=== PATIENT | male | born 1930 | race Caucasian/White ===

== ENCOUNTER → 2016-12-09 | Outpatient (CLI) | payer BC ==
[~2016-12-09] MED LIST: IOPAMIDOL (ISOVUE-300) 100 ML BTL IV ONE
[2016-12-09 11:05] LABS: CREATININE 2.4 mg/dL (0.7-1.3)
--- NOTE | 2016-12-09 13:29 | CT ---
CT Abdomen and Pelvis Unenhanced (Renal Stone Protocol) Indication: Hydronephrosis, urinary retention, history of prostate cancer. Comparison: Renal ultrasound October 08, 2016, CT abdomen and pelvis August 09, 2014. Technique: Axial unenhanced CT imaging was performed through the abdomen and pelvis without contrast . Dose reduction techniques were utilized. The study was performed unenhanced due to the patient's el evated creatinine. Findings: Abdomen: Minimal interlobular septal thickening in the lung bases is increased since the comparison. Right lower lobe granuloma is noted. The imaged noncontrast portions of the liver, gallbladder, spleen, and adrenals are normal. A 1.7-cm cyst in the pancreatic tail (series 3 image 72 e.g.) previously measured 1 cm. Pancreatic atrophy is noted with scattered pancreatic calcifications, suggesting sequela of previous pancreatitis. Moderate to severe bilateral hydronephrosis appears slightly increased since the comparison ultrasound with u reteral dilatation to the bladder. No renal or ureteral stones are identified. Renal parenchymal asse ssment is limited by the lack of IV contrast. Extensive diverticulosis is most prominent in the sigmoid colon, without evidence of diverticulitis. There is extensive stool throughout the colon. The colon and small bowel are normal caliber. The appe ndix is normal. Mild atherosclerosis is present in a normal caliber aorta. No pathologically enlarged lymph nodes are identified.. L3 through S1 fusion appears stable. Mild to moderate spinal canal narrowing at L5-S1 is grossly stab le. Assessment is limited by artifact from the patient's hardware. Pelvis: There is increased diffuse bladder wall thickening. There is new stranding in the fat adjacen t to the bladder. A small right bladder diverticulum is again noted. Prostatic calcifications are pre sent with interval TURP. No pathologically enlarged lymph nodes are identified. Osteopenia is present with no aggressive osseous lesions. Mild degenerative change is present in the hips. Impression: 1. Diffuse bladder wall thickening with stranding adjacent to the bladder, suspicious for cystitis, w ith increased moderate to severe hydronephrosis bilaterally. 2. Constipation with diverticulosis 3. Slight increase in size of a pancreatic cyst since 2013. Continued annual surveillance is recommen ded. 4. Additional findings as above. Attention: This examination does not use radiographic contrast, and as such, provides only a limited evaluation of the abdomen, pelvis and retroperitoneum.
== END ==
LOC: FIMAGING 10:08
PROVIDERS: ATTEND Physician Assistant Medical
DX: N13.30 Unspecified hydronephrosis (principal); R33.9 Retention of urine, unspecified; N32.89 Other specified disorders of bladder; K59.00 Constipation, unspecified; K86.2 Cyst of pancreas; Z98.1 Arthrodesis status; Z85.46 Personal history of malignant neoplasm of prostate
CPT/HCPCS: Q9967

== ENCOUNTER 2016-12-11 11:04 | Inpatient (IN) | payer BC ==
--- NOTE | 2016-12-11 11:34 | CPEKG ---
Heart Rate: 124 RR Interval: 484 P-R Interval: 159 QRSD Interval: 70 QT Interval: 292 QTC Interval: 420 P Lorenzo: 0 QRS Lorenzo: 32 T Wave Lorenzo: 66 EKG Severity - OTHERWISE NORMAL ECG - EKG Impression: SINUS TACHYCARDIA EKG Impression: LOW VOLTAGE IN FRONTAL LEADS Electronically Signed By: Darion Padilla 11-Dec-2016 12:08:53
[2016-12-11] MEDS ORDERED: NS 1,000 ML IV ONE ×2 (12:02)
--- NOTE | 2016-12-11 12:06 | EDPHY ---
H & P Stated Complaint: cancer pt/sent for admission/tachycardia and hypotensive at [facility] Time Seen by Provider: 12/11/16 11:44 HPI/ROS: CHIEF COMPLAINT: Pre syncopal HISTORY OF PRESENT ILLNESS: The patient is is an 86-year-old man who comes to the emergency department from the [facility] center. He has been treated for prostate cancer and has recently noticed increased creatinine levels. The patient states that he does not drink enough water and is continually dehydrated despite efforts made to drink more water. He states that he simply forgets to do it. He denies recent fevers or illness. His son states that he has been increasingly weak over the last 3 days. He did vomit once 3 days ago but does not have any abdominal pain or nausea. No diarrhea. No dark stool. Today he was seen by Dr. Durham and told him that he was pre syncopal. He had a heart rate of 120 and a systolic blood pressure of 90. They transferred appear to the emergency department for evaluation. REVIEW OF SYSTEMS: Constitutional: denies: chills, fever, recent illness, recent injury EENTM: denies: blurred vision, double vision, nose congestion Respiratory: denies: cough, shortness of breath Cardiac: See HPI Gastrointestinal/Abdominal: denies: abdominal pain, diarrhea, nausea, vomiting, blood streaked stools Genitourinary: denies: dysuria, frequency, hematuria, pain Musculoskeletal: denies: joint pain, muscle pain Skin: denies: lesions, rash, jaundice, bruising Neurological: denies: headache, numbness, paresthesia, tingling, dizziness, weakness Hematologic/Lymphatic: denies: blood clots, easy bleeding, easy bruising Immunologic/allergic: denies: HIV/AIDS, transplant EXAM: GENERAL: Well-appearing, well-nourished and in no acute distress. HEAD: Atraumatic, normocephalic. EYES: Pupils equal round and reactive to light, extraocular movements intact, sclera anicteric, conjunctiva are normal. ENT: TMs normal, nares patent, oropharynx clear without exudates. Moist mucous membranes. NECK: Normal range of motion, supple without lymphadenopathy or JVD. LUNGS: Breath sounds clear to auscultation bilaterally and equal. No wheezes rales or rhonchi. HEART: Tachycardia, regular ABDOMEN: Soft, nontender, normoactive bowel sounds. No guarding, no rebound. No masses appreciated. BACK: No CVA tenderness, no spinal tenderness, step-offs or deformities EXTREMITIES: Normal range of motion, no pitting or edema. No clubbing or cyanosis. NEUROLOGICAL: Cranial nerves II through XII grossly intact. Normal speech, normal gait. 5/5 strength, normal movement in all extremities, normal sensation PSYCH: Normal mood, normal affect. SKIN: Warm, dry, normal turgor, no visible rashes or lesions. Source: Patient Exam Limitations: No limitations - Personal History Current Tetanus/Diphtheria Vaccine: No - Medical/Surgical History Hx Asthma: No Hx Chronic Respiratory Disease: No Hx Diabetes: No Hx Cardiac Disease: Yes Hx Renal Disease: No Hx Cirrhosis: No Hx Alcoholism: No Hx HIV/AIDS: No Hx Splenectomy or Spleen Trauma: No Other PMH: htn, peripheral neuropathy,uti/?kidney failure/prostate cancer - Family History Significant Family History: Hypertension - Social History Smoking Status: Former smoker Alcohol Use: Sober Drug Use: None Constitutional: Initial Vital Signs Temperature (C) 36.4 C 12/11/16 11:10 Heart Rate 126 H 12/11/16 11:10 Respiratory Rate 20 12/11/16 11:10 Blood Pressure 126/88 H 12/11/16 11:10 O2 Sat (%) 96 12/11/16 11:10 O2 Delivery Mode Room Air Allergies/Adverse Reactions: No Known Allergies Allergy (Verified 12/11/16 11:08) Home Medications: Medication Instructions Recorded Gabapentin [Neurontin] 1,200 mg PO BID@16,21 11/23/12 Casadex 12/11/16 traZODone 12/11/16 Medical Decision Making - Diagnostics EKG Interpretation: An EKG obtained and was read and documented in trace view. Please see trace view for full reading and report. Sinus tachycardia ED Course/Re-evaluation: Patient had a CT abdomen and pelvis done 2 days ago they revealed mild diffuse bladder wall thickening consistent with cystitis as well as a moderate hydronephrosis bilaterally. 1:05 p.m. the patient's blood pressure is 140/80 he is feeling completely well. His heart rate decreased to 100. I will treat with a 2nd L and continue to observe. His creatinine is slightly elevated. This may be primarily due to dehydration. 1:[address] Regis Quintanilla is here evaluating the patient. He agrees to admit for renal insufficiency and what appears to be bladder thickening on CT scan. Patient's vital signs improved significantly with hydration. He does live alone in the [facility]. Differential Diagnosis: Partial list of the Differential diagnosis considered include but were not limited to; cystitis, bladder cancer, dehydration, obstructive uropathy and although unlikely based on the history and physical exam, I also considered sepsis, pneumonia, anemia. - Data Points Laboratory Results: Laboratory Results 12/11/16 11:35 12/11/16 11:35 12/11/16 11:35 WBC 11.56 H 10^3/uL (3.80-9.50) RBC 4.86 10^6/uL (4.40-6.38) Hgb 14.5 g/dL (13.7-17.5) Hct 43.9 % (40.0-51.0) MCV 90.3 fL (81.5-99.8) MCH 29.8 pg (27.9-34.1) MCHC 33.0 g/dL (32.4-36.7) RDW 15.1 % (11.5-15.2) Plt Count 380 10^3/uL (150-400) MPV 9.7 fL (8.7-11.7) Neut % (Auto) 82.2 H % (39.3-74.2) Lymph % (Auto) 11.1 L % (15.0-45.0) Sharp % (Auto) 5.2 % (4.5-13.0) Eos % (Auto) 0.8 % (0.6-7.6) Baso % (Auto) 0.3 % (0.3-1.7) Nucleat RBC Rel Count 0.0 % (0.0-0.2) Absolute Neuts (auto) 9.51 H 10^3/uL (1.70-6.50) Absolute Lymphs (auto) 1.28 10^3/uL (1.00-3.00) Absolute Monos (auto) 0.60 10^3/uL (0.30-0.80) Absolute Eos (auto) 0.09 10^3/uL (0.03-0.40) Absolute Basos (auto) 0.03 10^3/uL (0.02-0.10) Absolute Nucleated RBC 0.00 10^3/uL (0-0.01) Immature Gran % 0.4 % (0.0-1.1) Immature Gran # 0.05 10^3/uL (0.00-0.10) Sodium 141 mEq/L (134-144) Potassium 4.6 mEq/L (3.5-5.2) Chloride 101 mEq/L (97-110) Carbon Dioxide 23 mEq/l (22-31) Anion Gap 17 H mEq/L (8-16) BUN 50 H mg/dL (7-23) Creatinine 2.2 H mg/dL (0.7-1.3) Estimated GFR 28 Glucose 113 H mg/dL (70-100) Calcium 10.4 mg/dL (8.5-10.4) Medications Given: Discontinued Medications Sodium Chloride (Ns) 1,000 mls @ 0 mls/hr IV ONCE ONE PRN Reason: Wide Open Stop: 12/11/16 12:03 Last Admin: 12/11/16 12:17 Dose: 1,000 mls Sodium Chloride (Ns) 1,000 mls @ 0 mls/hr IV ONCE ONE PRN Reason: Wide Open Stop: 12/11/16 12:03 Last Admin: 12/11/16 13:20 Dose: 1,000 mls Departure - Departure Disposition: [facility] Inpatient Acute Clinical Impression: Dehydration, Renal insufficiency Condition: Fair
[2016-12-11 12:16] LABS: % IMMATURE GRANULYOCYTES 0.4 % (0.0-1.1); ABSOLUTE IMMATURE GRANULOCYTES 0.05 10^3/uL (0.00-0.10); ADD DIFF? NO; ADD MORPH? NO; ADD SCAN? NO; ATYPICAL LYMPHOCYTE FLAG 0 (0-99); FRAGMENT RBC FLAG 20 (0-99); HEMATOCRIT 43.9 % (40.0-51.0); HEMOGLOBIN 14.5 g/dL (13.7-17.5); LEFT SHIFT FLG 0 (0-99); LIPEMIA HEMOLYSIS FLAG 80 (0-99); MEAN CELL HEMOGLOBIN 29.8 pg (27.9-34.1); MEAN CELL VOLUME 90.3 fL (81.5-99.8); MEAN PLATELET VOLUME 9.7 fL (8.7-11.7); PLATELET CLUMPS FLAG 20 (0-99); PLATELET COUNT 380 10^3/uL (150-400); RED BLOOD CELL COUNT 4.86 10^6/uL (4.40-6.38); RED CELL DISTRIBUTION WIDTH 15.1 % (11.5-15.2)
[2016-12-11 12:21] LABS: ANION GAP 17 mEq/L (8-16); CALCIUM 10.4 mg/dL (8.5-10.4); CARBON DIOXIDE 23 mEq/l (22-31); CHLORIDE 101 mEq/L (97-110); CREATININE 2.2 mg/dL (0.7-1.3); GLOMERULAR FILTRATION RATE 28; GLUCOSE 113 mg/dL (70-100); POTASSIUM 4.6 mEq/L (3.5-5.2); SODIUM 141 mEq/L (134-144)
[2016-12-11] MEDS ORDERED: ONDANSETRON 4 MG/2 ML VIAL IVP PRN (13:53)
[2016-12-11] MEDS ORDERED: ACETAMINOPHEN 325 MG TAB PO PRN (13:53)
[2016-12-11] MEDS ORDERED: ZOLPIDEM TARTRATE 5 MG TAB PO PRN (13:53)
[2016-12-11] MEDS ORDERED: NS 1,000 ML IV SCH (14:00)
[2016-12-11 14:07] LABS: COLOR YELLOW; LEUKOCYTE ESTERASE,URINE 3+ (NEGATIVE); NITRITE,URINE NEGATIVE (NEGATIVE)
[2016-12-11 14:18] LABS: RBC,URINE 25-50 /hpf (0-3); WBC,URINE 50-182 /hpf (0-3)
[2016-12-11 14:45] VITALS: RESP 16
--- NOTE | 2016-12-11 14:59 | PDGENHP ---
History and Physical History and Physical: HISTORY AND PHYSICAL ADMISSION NOTE CC:Sent from Dr. Durham office because of hypotension tachycardia, recent vomiting HISTORY: Mr. Odonnell is an 86-year-old man who sees Dr. Durham for prostate cancer. He was in a clinic visit today when he complained of some lightheadedness and was found to have tachycardia and hypotension. On blood testing did have a mildly elevated white blood cell count was sent to the ER for further evaluation. As I go for the patient's story he tells me he was doing well in his usual state until 2 days ago when he had episode of significant vomiting with large volumes of fluid. He says he gets these occasionally but has not had this happen for some months at least. There is no abdominal pain, no bleeding, no diarrhea, but there was nausea. The vomiting did not last very long and he has been eating and drinking since then.He has no nausea now. The patient has not any fever symptoms and has not had any other flu-like symptoms. There are no cold symptoms. Incidentally the patient did have a CT scan done here 2 days ago which was to evaluate his urinary system, however he had only part of the study done as his creatinine was elevated at the time and the contrast portion of the study was not performed. As best I can piece together from his clinic charts and from talking to Dr. Mccarthy this patient was found to have rising creatinine in September at which time an ultrasound showed evidence of some hydronephrosis which was mild. His creatinine in July was 1.1 and 1.8 in September. The patient saw Dr. Mccarthy and apparently was voiding his bladder well so a CT scan was ordered. I reviewed the CT images and report and the findings include mild to moderate hydronephrosis with bladder wall thickening and pericystic stranding suggesting possible cystitis. The hydronephrosis is bilateral. There is no mass visible otherwise and no stones. ROS: 10 system review of systems reveals no other significant symptoms at this time. PAST MEDICAL HISTORY: Prostate cancer, status post prostatectomy, and currently with decreased PSA taking Lupron and bicalutamide Recent onset of renal insufficiency Peripheral neuropathy Spinal stenosis Diastolic heart failure Pancreatic cyst is seen on CT scans, little warp changer time FAMILY MEDICAL HISTORY: familial idiopathic peripheral neuropathy SOCIAL HISTORY: , lives in a private home in [place] [facility] by himself with the dog no smoking or tobacco or alcohol use MEDICATIONS: his home medicines and not been yet reconciled by our pharmacist, however he does take bicalutamide, Lupron, gabapentin, trazodone for sleep ; I will need to wait for the full list to be reconciled PHYSICAL EXAMINATION: Vital Signs: pulse in the mid 120's and was reported as having been hypotensive in the clinician's office, but his blood pressures here have been good so far. 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 and 11.08 RADIOLOGY STUDIES: I reviewed the CT scan images and report from December 09, as detailed above in history of this note ASSESSMENT: # HYPOTENSION AND TACHYCARDIA # PYURIA WITH SOME SUSPICION FOR URINARY TRACT INFECTION # PROBABLE SEPSIS # WORSENING RENAL FUNCTION WITH BILATERAL HYDRONEPHROSIS The patient does not have typical voiding symptoms of UTI, however he does have acute illness with hypotension and tachycardia, pyuria, high white blood cell count, and on CT scan 2 days ago finding suggestive of cystitis (see discussion below). Therefore cultures been sent from his urine and I will start him on antibiotics along with giving him aggressive hydration at this time. In terms of his worsening renal function and bilateral hydronephrosis Dr. Mccarthy and I reviewed his CT scan together. It is hard to determine what his hydronephrosis is coming from. Given that it is fairly mild in Dr. Mccarthy opinion, it is also difficult to determine whether the hydronephrosis is causing his change in renal function. Our plan will be to treat the patient for his acute hemodynamic change and probable infection, and observe his renal function. If it seems to be stable or getting better the Dr. Mccarthy would like to see him back in clinic to do cystoscopy. If he does not have any resolution or particularly if things get worse with his renal function we may need to consider cystoscopy and or nephrostomy tube placement here. Dr. Mccarthy will be rounding this weekend and will be available if the patient is not improving. PLANS: - inpatient admission - Urine cultures pending -Continue IV fluid resuscitation -Begin IV antibiotics empirically for urinary tract infection -Fall risk precautions Follow orthostatic vital signs -DVT prophylaxis I have reviewed the patient's case in detail with Dr. Darion Padilla and Dr. Max Mccarthy I have reviewed the patient's past medical records as part of this assessment, including previous hospital records including laboratory data imaging and physician notes. Also his clinic records as available 3 Green 1
[2016-12-11] MEDS ORDERED: GABAPENTIN 100 MG CAP PO SCH (22:30)
[2016-12-11] MEDS ORDERED: traZODone 50 MG TAB PO SCH (22:30)
[2016-12-12 06:09] LABS: % IMMATURE GRANULYOCYTES 0.5 % (0.0-1.1); ABSOLUTE IMMATURE GRANULOCYTES 0.04 10^3/uL (0.00-0.10); ADD DIFF? NO; ADD MORPH? NO; ADD SCAN? NO; ATYPICAL LYMPHOCYTE FLAG 10 (0-99); FRAGMENT RBC FLAG 0 (0-99); HEMATOCRIT 32.7 % (40.0-51.0); HEMOGLOBIN 10.8 g/dL (13.7-17.5); LEFT SHIFT FLG 0 (0-99); LIPEMIA HEMOLYSIS FLAG 80 (0-99); MEAN CELL HEMOGLOBIN 29.4 pg (27.9-34.1); MEAN CELL VOLUME 89.1 fL (81.5-99.8); MEAN PLATELET VOLUME 9.1 fL (8.7-11.7); PLATELET CLUMPS FLAG 10 (0-99); PLATELET COUNT 262 10^3/uL (150-400); RED BLOOD CELL COUNT 3.67 10^6/uL (4.40-6.38); RED CELL DISTRIBUTION WIDTH 14.9 % (11.5-15.2)
[2016-12-12 06:11] LABS: ANION GAP 9 mEq/L (8-16); CALCIUM 8.9 mg/dL (8.5-10.4); CARBON DIOXIDE 22 mEq/l (22-31); CHLORIDE 111 mEq/L (97-110); CREATININE 1.8 mg/dL (0.7-1.3); GLOMERULAR FILTRATION RATE 36; GLUCOSE 89 mg/dL (70-100); POTASSIUM 4.1 mEq/L (3.5-5.2); SODIUM 142 mEq/L (134-144)
[2016-12-12] MEDS ORDERED: BICALUTAMIDE 50 MG TAB PO SCH (09:00)
[2016-12-12] MEDS ORDERED: ENOXAPARIN 30 MG/0.3 ML SYR SC SCH (09:00)
[2016-12-12] MEDS ORDERED: ENOXAPARIN 40 MG/0.4 ML SYR SC SCH (09:00)
--- NOTE | 2016-12-12 11:52 | GDS ---
[f rep st] DISCHARGE SUMMARY DISCHARGE DIAGNOSES: 1. Complicated urinary tract infection. 2. History of prostate cancer. 3. Possible urinary obstruction with mild hydronephrosis. 4. History of renal insufficiency with worsening creatinine. 5. Peripheral neuropathy. 6. Spinal stenosis. 7. Diastolic heart failure. 8. Sepsis. HISTORY: This is an 86-year-old male who sees Dr. Durham for prostate cancer. He presented with some tachycardia and lightheadedness as well as hypertension. HOSPITAL COURSE: The patient did have significant pyuria. He did have a CAT scan previously that sh owed mild severe hydronephrosis bilaterally as well as diffuse bladder wall thickening. HOSPITAL COURSE: Patient was admitted. Given IV fluids. Tachycardia improved. Creatinine also is improving, although not completely at baseline. Discharge creatinine is 1.8. He is feeling a lot be tter. He is adamant that he wants to go home. I think this is probably reasonable. He is seeing Dr Marlena Mccarthy on Wednesday or in 2 days for followup because of his hydronephrosis. Dr. Mccarthy has been workin g with him closely over the last several months. DISPOSITION: Home. DISCHARGE MEDICATIONS: He should resume his home medications, and in addition will be given Ceftin 2 50 mg twice daily for 7 more days. FOLLOWUP INSTRUCTIONS: He is to follow up with Dr. Mccarthy in 2 days. /[id number]/MODL
[2016-12-12 12:40] VITALS: BP 128/76; PULSE 78; TEMP 97.6; O2SAT 96
== END 2016-12-12 13:19 | disposition home or self-care (01) | DRG 690 ==
LOC: OBSVTOIN 13:53 → F3E 14:38
PROVIDERS: ADMIT Internal Medicine; ATTEND Internal Medicine
DX: N30.90 Cystitis, unspecified without hematuria (principal); E86.0 Dehydration; N28.9 Disorder of kidney and ureter, unspecified; N13.30 Unspecified hydronephrosis; C61 Malignant neoplasm of prostate; G62.9 Polyneuropathy, unspecified; M48.00 Spinal stenosis, site unspecified; I50.30 Unspecified diastolic (congestive) heart failure
CPT/HCPCS: J0696; J1650

== ENCOUNTER 2017-10-03 12:19 | Inpatient (IN) | payer BC ==
--- NOTE | 2017-10-03 12:56 | CPEKG ---
Heart Rate: 99 RR Interval: 606 P-R Interval: 172 QRSD Interval: 76 QT Interval: 332 QTC Interval: 426 P [place]: 79 QRS [place]: 16 T Wave [place]: 79 EKG Severity - ABNORMAL ECG - EKG Impression: SINUS RHYTHM EKG Impression: RIGHT ATRIAL ABNORMALITY EKG Impression: LOW VOLTAGE IN FRONTAL LEADS Electronically Signed By: Miguel Pop 04-Oct-2017 21:52:12
[2017-10-03] MEDS ORDERED: NS 1,000 ML IV ONE (12:57)
[2017-10-03 13:01] LABS: % IMMATURE GRANULYOCYTES 0.5 % (0.0-1.1); ABSOLUTE IMMATURE GRANULOCYTES 0.07 10^3/uL (0.00-0.10); ADD DIFF? NO; ADD MORPH? NO; ADD SCAN? NO; ATYPICAL LYMPHOCYTE FLAG 0 (0-99); FRAGMENT RBC FLAG 0 (0-99); HEMATOCRIT 47.2 % (40.0-51.0); HEMOGLOBIN 16.6 g/dL (13.7-17.5); LEFT SHIFT FLG 0 (0-99); LIPEMIA HEMOLYSIS FLAG 90 (0-99); MEAN CELL HEMOGLOBIN 31.6 pg (27.9-34.1); MEAN CELL HEMOGLOBIN CONCENTR. 35.2 g/dL (32.4-36.7); MEAN CELL VOLUME 89.7 fL (81.5-99.8); MEAN PLATELET VOLUME 8.9 fL (8.7-11.7); PLATELET CLUMPS FLAG 0 (0-99); PLATELET COUNT 429 10^3/uL (150-400); RED BLOOD CELL COUNT 5.26 10^6/uL (4.40-6.38)
[2017-10-03 13:07] LABS: ALANINE AMINOTRANSFERASE 38 IU/L (21-72); ALBUMIN 4.2 g/dL (3.5-5.0); ALKALINE PHOSPHATASE 98 IU/L (38-126); ANION GAP 21 mEq/L (8-16); ASPARTATE AMINOTRANSFERASE 17 IU/L (17-59); BILIRUBIN,TOTAL 0.4 mg/dL (0.1-1.4); BILIRUBIN-CONJUGATED 0.3 mg/dL (0.0-0.5); BILIRUBIN-UNCONJUGATED 0.1 mg/dL (0.0-1.1); CALCIUM 9.1 mg/dL (8.5-10.4); CARBON DIOXIDE 12 mEq/l (22-31); CHLORIDE 102 mEq/L (97-110); CREATININE 3.6 mg/dL (0.7-1.3); GLOMERULAR FILTRATION RATE 16; GLUCOSE 168 mg/dL (70-100); SODIUM 135 mEq/L (134-144); TOTAL PROTEIN 7.8 g/dL (6.3-8.2)
--- NOTE | 2017-10-03 13:09 | EDPHY ---
HPI/HX/ROS/PE/MDM Narrative: CHIEF COMPLAINT: Loss of appetite, constipation HPI: The patient is an 87 y/o male with a history of prostate cancer, kidney failure, hypertension, tachycardia, and peripheral neuropathy complaining of loss of appetite and constipation for the past few days. He has vomited several times with a reddish emesis. He has associated global weakness. He denies abdominal pain or tenderness, dark or tarry stools, or any other associated symptoms. He has been able to drink a small amount of water. REVIEW OF SYSTEMS: Aside from elements discussed in the HPI, a comprehensive 10-point review of systems was reviewed and is negative. PMH: Peripheral neuropathy, prostate cancer, kidney failure, hypertension, tachycardia Past medical records reviewed including 12/11/16 ED visit SOCIAL HISTORY: Lives alone in [place], has a [place] Gao named Mari, retired PHYSICAL EXAM: General:Patient is cachectic, alert, in no acute distress. ENT:Eyes are normal to inspection. ENT inspection normal. Neck: Normal inspection. Full range of motion. Respiratory:No respiratory distress. Breath sounds normal bilaterally. Cardiovascular: Regular rate and rhythm. Normal cap refill. Abdomen:The abdomen is nontender to palpation. There are no peritoneal signs. There are normal bowel sounds. Back: Normal to inspection. No tenderness to palpation. Skin: Normal color. No rash. Warm and dry. Extremities: Normal appearance. Full range of motion. Neuro: Oriented x3. Normal motor function. Normal sensory function. ED Course: EKG was ordered and interpreted by myself. EKG normal. Please see [employer] system for official reading. Study: X-ray of the chest Indication: Abdominal pain, loss of appetite, history of cardiac issues Results: X-ray of the chest was obtained. The results of the study are: negative for acute processes The study was read by the radiologist, Dr. Vargas. I viewed the images myself on the PACS system. 1324: Labs (elevated potassium and BUN) indicate acute renal failure. Plan for admission. 1329: I spoke with the hospitalist service regarding admission for this patient. They agree to admit. Dr. Lucero will be the admitting doctor. MDM: This elderly patient presents with severe dehydration and ARF, evidenced by high creatinine and elevated potassium. The underlying etiology is unclear. The patient requires admission to the hosptial for rehydration and further workup. I see no signs of infectious process currently. - Data Points Imaging Results: Imaging Impressions Chest X-Ray 10/03/17 12:57 Impression: COPD with mild perihilar bronchitis, but no focal infiltrate. Laboratory Results: Laboratory Results 10/03/17 12:48 10/03/17 12:48 10/03/17 10/03/17 12:48 12:48 WBC 12.92 10^3/uL H 10^3/uL (3.80-9.50) RBC 5.26 10^6/uL 10^6/uL (4.40-6.38) Hgb 16.6 g/dL g/dL (13.7-17.5) Hct 47.2 % % (40.0-51.0) MCV 89.7 fL fL (81.5-99.8) MCH 31.6 pg pg (27.9-34.1) MCHC 35.2 g/dL g/dL (32.4-36.7) RDW 19.0 % H % (11.5-15.2) Plt Count 429 10^3/uL H 10^3/uL (150-400) MPV 8.9 fL fL (8.7-11.7) Neut % (Auto) 88.1 % H % (39.3-74.2) Lymph % (Auto) 7.3 % L % (15.0-45.0) Shelby % (Auto) 4.0 % L % (4.5-13.0) Eos % (Auto) 0.0 % L % (0.6-7.6) Baso % (Auto) 0.1 % L % (0.3-1.7) Nucleat RBC Rel Count 0.0 % % (0.0-0.2) Absolute Neuts (auto) 11.38 10^3/uL H 10^3/uL (1.70-6.50) Absolute Lymphs (auto) 0.94 10^3/uL L 10^3/uL (1.00-3.00) Absolute Monos (auto) 0.52 10^3/uL 10^3/uL (0.30-0.80) Absolute Eos (auto) 0.00 10^3/uL L 10^3/uL (0.03-0.40) Absolute Basos (auto) 0.01 10^3/uL L 10^3/uL (0.02-0.10) Absolute Nucleated RBC 0.00 10^3/uL 10^3/uL (0-0.01) Immature Gran % 0.5 % % (0.0-1.1) Immature Gran # 0.07 10^3/uL 10^3/uL (0.00-0.10) Sodium 135 mEq/L mEq/L (134-144) Potassium 6.3 mEq/L H* mEq/L (3.5-5.2) Chloride 102 mEq/L mEq/L (97-110) Carbon Dioxide 12 mEq/l L mEq/l (22-31) Anion Gap 21 mEq/L H mEq/L (8-16) BUN 116 mg/dL H* mg/dL (7-23) Creatinine 3.6 mg/dL H mg/dL (0.7-1.3) Estimated GFR 16 Glucose 168 mg/dL H mg/dL (70-100) Calcium 9.1 mg/dL mg/dL (8.5-10.4) Total Bilirubin 0.4 mg/dL mg/dL (0.1-1.4) Conjugated Bilirubin 0.3 mg/dL mg/dL (0.0-0.5) Unconjugated Bilirubin 0.1 mg/dL mg/dL (0.0-1.1) AST 17 IU/L IU/L (17-59) ALT 38 IU/L IU/L (21-72) Alkaline Phosphatase 98 IU/L IU/L (38-126) Troponin I < 0.012 ng/mL ng/mL (0.000-0.034) Total Protein 7.8 g/dL g/dL (6.3-8.2) Albumin 4.2 g/dL g/dL (3.5-5.0) Lipase 194 IU/L IU/L (23-300) Medications Given: Discontinued Medications Sodium Chloride (Ns) 1,000 mls @ 0 mls/hr IV EDNOW ONE; Wide Open PRN Reason: Protocol Stop: 10/03/17 12:58 Last Admin: 10/03/17 13:24 Dose: 1,000 mls General Time Seen by Provider: 10/03/17 12:55 Initial Vital Signs: Initial Vital Signs Temperature (C) 36.3 C 10/03/17 12:19 Heart Rate 108 H 10/03/17 12:19 Respiratory Rate 16 10/03/17 12:19 Blood Pressure 120/89 H 10/03/17 12:19 O2 Sat (%) 99 10/03/17 12:19 O2 Delivery Mode Room Air Allergies/Adverse Reactions: No Known Allergies Allergy (Verified 12/11/16 11:08) Home Medications: Medication Instructions Recorded Bicalutamide [Casodex (*)] 50 mg PO DAILY 12/11/16 Gabapentin [Neurontin 100 MG (*)] 100 mg PO HS 12/11/16 traZODone [traZODONE 50MG (*)] 50 mg PO HS 12/11/16 Aspirin EC [Aspirin EC 325 mg (*)] 325 mg PO HS 10/03/17 Herbals/Supplements -Info Only 1 ea PO DAILY 10/03/17 Departure - Departure Disposition: [facility] Inpatient Acute Clinical Impression: Acute renal failure Qualifiers: Acute renal failure type: unspecified Qualified Code(s): N17.9 - Acute kidney failure, unspecified Condition: Fair Report Scribed for: Miguel Pop Report Scribed by: Deandra Phillips Date of Report: 10/03/17 Time of Report: 13:17 Physician Review and Approval Statement: Portions of this note were transcribed by an ED scribe. I personally performed the history, physical exam, and medical decision making; and confirm the accuracy of the information in the transcribed note.
[2017-10-03 13:19] LABS: TROPONIN I < 0.012 ng/mL (0.000-0.034)
[2017-10-03 13:22] LABS: POTASSIUM 6.3 mEq/L (3.5-5.2)
[2017-10-03 14:16] LABS: LEUKOCYTE ESTERASE,URINE 3+ (NEGATIVE); NITRITE,URINE NEGATIVE (NEGATIVE)
[2017-10-03 14:18] LABS: COLOR RED
[2017-10-03 14:26] LABS: MUCUS TRACE /lpf (NONE-1+); RBC,URINE 50-182 /hpf (0-3); WBC,URINE 50-182 /hpf (0-3)
[2017-10-03] MEDS ORDERED: ONDANSETRON 4 MG/2 ML VIAL IVP PRN (14:58)
[2017-10-03] MEDS ORDERED: ONDANSETRON DISINTEGRATING 4 MG TAB PO PRN (14:58)
[2017-10-03] MEDS ORDERED: ACETAMINOPHEN 325 MG TAB PO PRN (14:58)
[2017-10-03] MEDS ORDERED: SODIUM BICARBONATE 50 MEQ/50 ML SYR IVP ONE (15:00)
[2017-10-03] MEDS ORDERED: SODIUM POLY SULF 15 GM/60 ML BOTTLE PO ONE (15:02)
[2017-10-03] MEDS ORDERED: D50W 25 GM/50 ML SYR IVP ONE (15:06)
[2017-10-03] MEDS ORDERED: INSULIN REGULAR HUMAN 100 UNIT/ML IVP ONE (15:06)
[2017-10-03 16:17] LABS: ANION GAP 15 mEq/L (8-16); CALCIUM 8.2 mg/dL (8.5-10.4); CARBON DIOXIDE 13 mEq/l (22-31); CHLORIDE 108 mEq/L (97-110); CREATININE 3.2 mg/dL (0.7-1.3); GLOMERULAR FILTRATION RATE 18; GLUCOSE 110 mg/dL (70-100); SODIUM 136 mEq/L (134-144)
--- NOTE | 2017-10-03 16:29 | GHP ---
[f rep st] HISTORY AND PHYSICAL DATE OF ADMISSION: 10/03/2017 CHIEF COMPLAINT: Weakness. HISTORY OF PRESENT ILLNESS: The patient is an elderly man with a history significant for prostate cancer, chronic renal failure. His most recent creatinine was around 2.3. He comes in with 3-4 days of feeling poorly. He has had decreased p.o. intake due to anorexia, although he has been trying to stay hydrated by drinking fluids. He denies any fevers, chills, or difficulty urinating. He is incontinent of urine and wears a diaper. He denies any change in his urine output that he knows. Over the last 2 days he has had increased nausea and vomiting. No diarrhea. His last BM was this morning. He denies any headache, vision, hearing, speech issues. He denies any chest pain, shortness of breath, or palpitations. He denies any abdominal pain. He has no significant lower extremity swelling. He does have chronic peripheral neuropathy, which makes it difficult for him to ambulate. REVIEW OF SYSTEMS: A 10-point review of systems was done. Pertinent positives in the HPI. PAST MEDICAL HISTORY: 1. Prostate cancer, followed by Dr. Durham, status post radiation, and after recurrence currently on Lupron and Casodex. 2. Spinal stenosis, status post L4-5 decompression. 3. Hypertension, currently not treated. 4. Peripheral neuropathy. 5. Chronic renal failure. Baseline creatinine anywhere from 2.2-3. FAMILY HISTORY: Reviewed and noncontributory. SOCIAL HISTORY: His several years ago. He currently lives alone up in [facility] in a 3-story house. He is wheelchair bound due to his peripheral neuropathy and fear of falling. He has a wheelchair on every floor of his house and goes up and down the stairs without assistance until he gets to the next floor, where he has a wheelchair waiting for him. He does have 2 sons in town. One son sees him daily and brings him food. The other son takes him to all of his medical appointments. MEDICATIONS: Gabapentin 100 mg at night, aspirin daily, Casodex daily, and trazodone 50 mg at night. Please see med rec form. ALLERGIES: No known drug allergies. PHYSICAL EXAMINATION: VITAL SIGNS: He is afebrile. Heart rate 100, blood pressure 139/88, respirations 16, he is 98% on room air. GENERAL: He is an elderly man, who looks fairly debilitated, in no obvious distress. He is alert and oriented x2. He is unclear of the date. HEENT: Pupils are equal. Extraocular movements intact. Sclerae anicteric. Mucous membranes are slightly dry. Oropharynx is clear. NECK: Supple. No adenopathy. HEART: Regular with a systolic murmur. LUNGS: Clear bilaterally without wheeze, rhonchi, or rales. Spine nontender. ABDOMEN: Soft. No obvious masses. Positive bowel sounds. EXTREMITIES: Feet are cool to the touch with diminished peripheral pulses. He does have bilateral lower extremity edema, which is equal. MUSCULOSKELETAL: Noted for some atrophy. No obvious joint effusions or deformities. NEUROLOGIC: Peripheral neuropathy. He is moving all 4 extremities. SKIN: Some chronic venous stasis changes in his feet. PSYCHIATRIC: Mood is normal. LABORATORY DATA: CBC shows a white count of 12.9, platelets 429. Electrolytes show sodium 135, potassium 6.3, BUN 116, with a creatinine of 3.6. LFTs are normal. Troponin is negative. Urinalysis is positive for hematuria and pyuria. Chest x-ray personally reviewed and interpreted, shows no focal infiltrate. Electrocardiogram personally reviewed and interpreted, sinus rhythm , no significant T-wave changes. ASSESSMENT AND PLAN: 87-year-old who presents with several days of anorexia and a couple days of nausea and vomiting, is found to have hyperkalemia associated with renal failure. 1. Hyperkalemia. We will treat this acutely with some bicarb, glucose and insulin, and Kayexalate. Will follow serial electrolytes tonight, give him intravenous fluids and evaluate his renal failure. 2. Xovag-ri-yhabnde renal failure. Baseline creatinine is anywhere from 2.4 to 3 over the last several months. Plan will be to check urine electrolytes, protein levels, and renal ultrasound. We will do a quick bladder scan for decompression if he has urinary retention. 3. Prostate cancer, recurrent, followed by Dr. Durham. Continue his Casodex. 4. Osteoporosis, currently on Prolia. 5. History of hypertension, stable. 6. Iron deficiency anemia. Has received intravenous iron in the clinic. Anemia likely also associated with his renal failure. 7. Deep venous thrombosis prophylaxis. Patient at moderately high risk. We will start subcutaneous heparin. 8. Code status. I did have an extensive conversation with the patient. He does not currently have a living will, but would like to be a do not resuscitate at this time. /[id number]/MODL MTDD
[2017-10-03] MEDS: NS 1,000 ML IV SCH (17:33)
[2017-10-03] MEDS: ASPIRIN EC 325 MG TAB PO SCH (20:26)
[2017-10-03] MEDS: HEPARIN 5,000 UNIT/0.5 ML SYR SC SCH (20:26)
[2017-10-03] MEDS: traZODone 50 MG TAB PO SCH (20:27)
[2017-10-03] MEDS: LIDOCAINE 5% 1 EA PATCH TD PRN (22:59)
[2017-10-03] MEDS ORDERED: GABAPENTIN 100 MG CAP PO SCH (23:30)
[2017-10-04 00:40] LABS: ANION GAP 19 mEq/L (8-16); CALCIUM 7.5 mg/dL (8.5-10.4); CARBON DIOXIDE 16 mEq/l (22-31); CHLORIDE 102 mEq/L (97-110); CREATININE 2.9 mg/dL (0.7-1.3); GLOMERULAR FILTRATION RATE 21; GLUCOSE 99 mg/dL (70-100); SODIUM 137 mEq/L (134-144)
[2017-10-04] MEDS: HEPARIN 5,000 UNIT/0.5 ML SYR SC SCH ×3 (06:19→20:37)
[2017-10-04] MEDS: NS 1,000 ML IV SCH ×2 (06:20→20:36)
[2017-10-04 06:31] LABS: % IMMATURE GRANULYOCYTES 0.4 % (0.0-1.1); ABSOLUTE IMMATURE GRANULOCYTES 0.04 10^3/uL (0.00-0.10); ADD DIFF? NO; ADD MORPH? NO; ADD SCAN? NO; ATYPICAL LYMPHOCYTE FLAG 0 (0-99); FRAGMENT RBC FLAG 0 (0-99); HEMATOCRIT 35.9 % (40.0-51.0); HEMOGLOBIN 12.6 g/dL (13.7-17.5); LEFT SHIFT FLG 0 (0-99); LIPEMIA HEMOLYSIS FLAG 90 (0-99); MEAN CELL HEMOGLOBIN 31.2 pg (27.9-34.1); MEAN CELL HEMOGLOBIN CONCENTR. 35.1 g/dL (32.4-36.7); MEAN CELL VOLUME 88.9 fL (81.5-99.8); MEAN PLATELET VOLUME 9.2 fL (8.7-11.7); PLATELET CLUMPS FLAG 0 (0-99); PLATELET COUNT 316 10^3/uL (150-400); RED BLOOD CELL COUNT 4.04 10^6/uL (4.40-6.38); RED CELL DISTRIBUTION WIDTH 18.7 % (11.5-15.2)
[2017-10-04 07:11] LABS: ANION GAP 15 mEq/L (8-16); CALCIUM 7.1 mg/dL (8.5-10.4); CARBON DIOXIDE 13 mEq/l (22-31); CHLORIDE 109 mEq/L (97-110); CREATININE 2.6 mg/dL (0.7-1.3); GLOMERULAR FILTRATION RATE 23; GLUCOSE 90 mg/dL (70-100); MAGNESIUM 2.4 mg/dL (1.6-2.3); POTASSIUM 3.7 mEq/L (3.5-5.2); SODIUM 137 mEq/L (134-144)
--- NOTE | 2017-10-04 09:28 | PDMN ---
Medical Necessity Medical necessity: Patient meets INPT criteria per physician note and [facility] M-326 Renal Failure, Acute ([id number] renal failure: presents w/ 3-4 days of feeling poorly, 2 days of N/V; baseline Creat 2-2.3, currently 3.6; hyperkalemia / K+ 6.3; abd U/S shows moderate bilateral hydronephrosis; hx of prostate cancer and CRF; given IV bicarb, glucose, insulin, Kayexalate for K+; ongoing tachycardia after IV fluid resuscitation; anticipated LOS > 2 midnights for ongoing IV hydration, IV antibiotics, serial electrolytes.)
[2017-10-04] MEDS: BICALUTAMIDE 50 MG TAB PO SCH (09:57)
--- NOTE | 2017-10-04 10:55 | HOSPPROG ---
Hospitalist Progress Note Assessment/Plan: 87 very debilitated man with a history of chronic renal failure is admitted with hyperkalemia and acute on chronic renal failure likely due to urinary tract infection and chronic hydronephrosis. # urinary tract infection: Improved clinically with ceftriaxone will continue same and follow up cultures. # acute on chronic renal failure, close but not quite at baseline today. He has not had any nephrology follow-up and will try to set that up as an outpatient. Avoid nephrotoxins. He is on a low dose of Neurontin and will continue that due to severe peripheral neuropathy # hyperkalemia, improved with bicarb and glucose/insulin will monitor for 24 hr to make sure it stays stable. # prostate cancer, followed by Dr. Durham # bilateral hydronephrosis followed by Dr. Mccarthy's, ultrasound appears fairly stable. # severe peripheral neuropathy, debilitating and that he is unable to walk due to balance issues. He lives in a 3 story house and has a wheelchair on every floor for ambulation. He is able to go up and down the stairs by holding on to railing, he denies any recent falls. Given his severe debilitation will make sure he is strong enough prior to returning home. He is refusing any other type of rehab at this time. # DVT prophylaxis continue subcu heparin Subjective: Feels better today no further nausea or vomiting has not had a bowel movement yet. Objective: Vital Signs Temp Pulse Resp BP Pulse Ox 36.7 C 80 12 104/63 99 10/04/17 08:00 10/04/17 08:00 10/04/17 08:00 10/04/17 08:00 10/04/17 08:00 Laboratory Results 10/04/17 06:00 10/04/17 06:00 10/03/17 10/04/17 10/05/17 05:59 05:59 05:59 Intake Total 2350 Balance 2350 - Physical Exam Constitutional: chronically ill appearing, uncomfortable Eyes: PERRL, anicteric sclera, EOMI Ears, Nose, Mouth, Throat: moist mucous membranes Cardiovascular: regular rate and rhythym, systolic murmur Respiratory: no respiratory distress, no rales or rhonchi, clear to auscultation Gastrointestinal: normoactive bowel sounds, soft, non-tender abdomen Genitourinary: no bladder fullness, No ramirez in urethra Skin: other (Bilateral feet with neuropathy and discoloration and diminished this) Musculoskeletal: generalized weakness Neurologic: No AAOx3 (October 2017 cannot remember the date) Psychiatric: interacting appropriately ICD10 Worksheet Patient Problems: Problems Problem Status Onset Acute renal failure Acute Dehydration Acute Renal insufficiency Acute
--- NOTE | 2017-10-04 10:56 | ASMTCMCOM ---
CM Note CM Note Notes: Patient admitted for acute renal failure/dehydration. He lives alone and has some private duty help every day. He also has supportive and involved children. I spoke with his son Tian Abdi, and either he or his brother will transport patient miky when he is discharged. PT/OT evals pending. Current CM Discharge plan: home with private duty help and family support Date Signed: 10/04/2017 10:56 AM Electronically Signed By:Orly León RN
[2017-10-04] MEDS: PATCH REMOVAL 1 EA PATCH TD SCH (11:12)
--- NOTE | 2017-10-04 18:02 | WOCRNPDOC ---
WOCRN Advanced Assessment Note - Skin Integrity Problem, Advanced Assess Right Ischial Tuberosity Pressure Injury Dressing Type: Open to Air Site Measurement - Head-to-Toe Length X Width X Depth (cm): 0.5x0.3x0.2 Pressure Injury Stage: Stage 3 Pressure Injury Present on Admit: Yes Skin Integrity Problem Comment: Discussed findings with patient. Offloading PRT Tio Kerwin cushion provided. Mo RN in room for care. Will initiate collagen to help stimulate wound healing as the wound appears to be several months old. Left Lower Leg Dressing Type: Allevyn Life Dressing Description: Intact Exudate Amount: Minimal Exudate Characteristic(s): Serous Integumentary Issue Intervention: Visualized Under Dressing Marsha Wound Tissue: Blanching, Erythema Wound Bed Constitution: Smooth Tissue Site Measurement - Head-to-Toe Length X Width X Depth (cm): medial: 4.5x1x0, anterior: 1x2x0.2 Skin Integrity Problem Comment: Per patient report these are traumatic wounds. However Mo staffing associate thought they may be due to pressure from the wheelchair. It is unclear if they are contusions or deep tissue injuries. Will recheck at the end of the week. Currently there is a small full thickness open area on the right side of the anterior wound, the remaining areas are closed and dark purple /red non blanching. Right Sacrum Pressure Injury Dressing Type: Open to Air Site Measurement - Head-to-Toe Length X Width X Depth (cm): 3x1x0 Pressure Injury Stage: Stage 1 Skin Integrity Problem Comment: This wound is on the most inferior edge of the right sacrum, quite close to the anus. It is non blanching but is tender per patient report. Due to patient's incontinence a dressing is not indicated here.
[2017-10-04] MEDS: traZODone 50 MG TAB PO SCH (20:36)
[2017-10-04] MEDS: ASPIRIN EC 325 MG TAB PO SCH (20:37)
[2017-10-04] MEDS ORDERED: GABAPENTIN 100 MG CAP PO SCH ×2 (21:00)
[2017-10-04] MEDS: LIDOCAINE 5% 1 EA PATCH TD PRN (22:03)
[2017-10-05 04:42] LABS: ANION GAP 11 mEq/L (8-16); CALCIUM 6.6 mg/dL (8.5-10.4); CARBON DIOXIDE 15 mEq/l (22-31); CHLORIDE 113 mEq/L (97-110); CREATININE 2.3 mg/dL (0.7-1.3); GLOMERULAR FILTRATION RATE 27; GLUCOSE 82 mg/dL (70-100); POTASSIUM 3.5 mEq/L (3.5-5.2); SODIUM 139 mEq/L (134-144)
[2017-10-05] MEDS: HEPARIN 5,000 UNIT/0.5 ML SYR SC SCH ×2 (06:03→14:31)
[2017-10-05 07:33] VITALS: BP 108/54; PULSE 120; RESP 18; TEMP 97.8; O2SAT 99
[2017-10-05] MEDS: BICALUTAMIDE 50 MG TAB PO SCH (09:10)
[2017-10-05] MEDS: PATCH REMOVAL 1 EA PATCH TD SCH (09:10)
--- NOTE | 2017-10-05 09:24 | PDIAF ---
- Diagnosis Diagnosis: UTI, renal failure, hyperkalemia Code Status: Do Not Resuscitate - Medication Management Discharge Medications: Medications to Continue on Transfer Bicalutamide [Casodex (*)] 50 mg PO DAILY 12/11/16 [Last Taken 10/02/17] Gabapentin [Neurontin 100 MG (*)] 100 mg PO HS 12/11/16 [Last Taken 10/01/17] traZODone [traZODONE 50MG (*)] 50 mg PO HS 12/11/16 [Last Taken 10/02/17] Aspirin EC [Aspirin EC 325 mg (*)] 325 mg PO HS 10/03/17 [Last Taken 10/02/17] Herbals/Supplements -Info Only 1 ea PO DAILY 10/03/17 [Last Taken Unknown] Cephalexin 500 mg PO BID #14 capsule 10/05/17 [Last Taken Unknown] Discharge Medications: Refer to the Discharge Home Medication list for PRN reason. - Orders Services needed: Home Care, Registered Nurse, Physical Therapy Home Care Face to Face: I certify that this patient was under my care and that I had the required [id number] encounter meeting the encounter requirements on the discharge day. My findings support the fact that the patient is homebound as defined in Home Care Face to Face Continued: CMS Chapter 7 Medicare Benefits Manual 30.1.1 , The condition of the patient is such that there exists a normal inability to leave home and consequently, leaving home would require a considerable and taxing effort. Isolation Type: None Diet Recommendation: potassium restricted Diet Texture: Regular Texture Diet - Labs/Radiology BMP Date: 10/11/17 - Follow Up Care Current Providers and Referrals: Patient,NotPresent [Unknown] - As per Instructions
--- NOTE | 2017-10-05 11:07 | GDS ---
[f rep st] DISCHARGE SUMMARY DIAGNOSES: 1. Hyperkalemia. 2. Acute on chronic renal failure. 3. Urinary tract infection. 4. Right ischial tuberosity pressure injury, right sacrum pressure injury. Wound Care recommends fo [place] with the wound clinic. 5. Prostate cancer. 6. Severe peripheral neuropathy, limiting ambulation. 7. Bilateral hydronephrosis, followed by Dr. Mccarthy. 8. Prostate cancer, followed by Dr. Durham. PROCEDURES DONE: Abdominopelvic ultrasound, showing stable hydronephrosis. HOSPITAL COURSE: The patient is an 87-year-old who presents with a few days of nausea, vomiting, poo r p.o. intake prior to admission. On admission, he was noted to be in acute on chronic renal failure with an elevated creatinine of 3.3, elevated potassium of 6.3. He was treated with bicarb, insulin and glucose with improvement in his potassium levels. He was treated with IV fluids, and his creatin ine improved to baseline, and his urinary tract infection was treated with ceftriaxone. By the [facility] hospital day, he was feeling well and was anxious to get home. His creatinine had stabilized at ba seline, and his potassium was back to normal. He is eating and drinking well at this time. There ar e some concerns about [place]. He song s 2 sons in town who take quite good care of him, but he is alone for most of the day. I will send h im home with some home care, and his daughter is working on more in-home non-skilled care to help him during the day. I agree with this and recommend the same. CONDITION ON DISCHARGE: Good. He has been afebrile. Heart rate 85, blood pressure 108/54, respirat ions 18. He is 99% on room air. Urine culture is currently pending, but he has improved significant ly on ceftriaxone, so we will convert him to cephalexin on discharge, and his primary care provider c an follow up on the culture. His creatinine is back to baseline at 2.3, with a potassium of 3.5. DISCHARGE MEDICATIONS: Please see discharge medication form. Additionally, he will be given 7 more days of cephalexin. FOLLOWUP INSTRUCTIONS: He needs to follow up with Dr. Champion in a week. He needs another metabolic panel checked in a week. I will have home care do this and send it to Dr. Champion's office. He als o should make an appointment and establish care with Nephrology given his chronic renal failure and e levated creatinine. I gave him information on how to schedule that at the time of discharge. I also alerted Nephrology, and they will attempt to get a hold of him as well. I spoke with Dr. Alberts from Nephrology, who will try to see him. Total time spent with patient on day of discharge and coordination of care is 35 minutes. Copy requested to: Dr. Champion /[id number]/MODL
--- NOTE | 2017-10-06 14:42 | ASDISCHSUM ---
Discharge Information Plan Status:Home with Home Health Medically Cleared to Leave:10/04/2017 Discharge Date:10/05/2017 05:13 PM CM D/C Disposition:Home, Routine, Self-Care ADT D/C Disposition:Home Health Service Projected Discharge Date:10/05/2017 12:00 AM Transportation at D/C:Family Discharge Delay Reason: Follow-Up Date:10/05/2017 12:00 AM Discharge Slot: Final Diagnosis: Placement Information Patient Contact Information Contact Name:BENNETT Relationship:Son Address:[address] [place]:[facility] Phone: [facility]/Zip Code:[place] [address] Email: Financial Information Financial Class:HMO and PPO Plans Primary Plan Desc:[facility] FEDERAL PLAN Primary Plan Number:[id number] Secondary Plan Desc: Secondary Plan Number: Assessment Information [facility] CM Progress Note CM Note CM Note Notes: Patient admitted for acute renal failure/dehydration. He lives alone and has some private duty help every day. He also has supportive and involved children. I spoke with his son Tian Abdi, and either he or his brother will transport patient miky when he is discharged. PT/OT lisa pending. Current CM Discharge plan: home with private duty help and family support Date Signed: 10/04/2017 10:56 AM Electronically Signed By:Orly León RN Intervention Information
== END 2017-10-05 17:13 | disposition home or self-care (01) | DRG 682 ==
LOC: F2W 14:48
PROVIDERS: ADMIT Internal Medicine; ATTEND Internal Medicine
DX: N17.9 Acute kidney failure, unspecified (principal); N18.9 Chronic kidney disease, unspecified; E86.0 Dehydration; E87.5 Hyperkalemia; N39.0 Urinary tract infection, site not specified; N13.30 Unspecified hydronephrosis; C61 Malignant neoplasm of prostate; L89.313 Pressure ulcer of right buttock, stage 3; L89.151 Pressure ulcer of sacral region, stage 1; G62.9 Polyneuropathy, unspecified; D50.9 Iron deficiency anemia, unspecified; D63.1 Anemia in chronic kidney disease
CPT/HCPCS: 97161-GP; 97166-GO; 97530-GO; 97530-GP; J0696

== ENCOUNTER 2017-12-01 07:25 | Day surgery (SDC) | payer BC ==
[2017-12-01] MEDS ORDERED: GLUCAGON HCL 1 MG VIAL IVP PRN (07:58)
[2017-12-01] MEDS ORDERED: NALOXONE HCL 0.4 MG/ML INJ IVP PRN (07:58)
[2017-12-01] MEDS ORDERED: FLUMAZENIL 0.5 MG/5 ML MDV IVP PRN (07:58)
[2017-12-01] MEDS ORDERED: ALTEPLASE 2 MG VIAL IVP PRN (07:58)
[2017-12-01] MEDS ORDERED: PROTAMINE SULFATE 50 MG/5 ML VIAL IVP PRN (07:58)
[2017-12-01] MEDS ORDERED: fentaNYL 100 MCG/2 ML INJ IVP PRN (07:58)
[2017-12-01] MEDS ORDERED: HEPARIN 10,000 UNIT/10 ML MDV (1,000 UNIT/ML) IVP PRN (07:58)
[2017-12-01] MEDS ORDERED: MEPERIDINE 25 MG/ML SYR IVP PRN (07:58)
[2017-12-01] MEDS ORDERED: MIDAZOLAM 2 MG/2 ML VIAL IVP PRN (07:58)
[2017-12-01] MEDS ORDERED: cefTRIAXone 1 GM in STERILE WATER INJ 10 ML IV ONE (07:58)
[2017-12-01] MEDS ORDERED: NS 1,000 ML IV SCH (08:00)
[2017-12-01 08:36] LABS: INR 1.04 (0.83-1.16); PROTIME(PATIENT) 13.8 SEC (12.0-15.0)
[2017-12-01] MEDS ORDERED: fentaNYL 100 MCG/2 ML INJ ONE (09:38)
[2017-12-01] MEDS ORDERED: MIDAZOLAM 2 MG/2 ML VIAL ONE (09:39)
--- NOTE | 2017-12-01 10:32 | PDGENHP ---
History & Physical Chief Complaint: Bilateral hydronephrosis History of Present Illness: 87 yo M w prostate ca s/p XRT, bilateral hydronephrosis and CKD. Referred to IR for bilateral nephrostomy catheter placement. Discussed possibility of nephroureteral catheter or double J ureteral stent placement with Jessy Gayle prior to procedure but they'd prefer just nephrostomies for now. Pt has no specific complaints today. Denies F /C, N/V. He says he has a prescription for antibiotics which he needs to excelsior picker. I encouraged him to do so today and begin taking them as prescribed. He verbalized understanding. Pertinent Past, Social, Family History: Non-contributory Relevant Physical Exam: No CV angle tenderness Cardiorespiratory Assessment: RRR, normal resp effort
[2017-12-01] MEDS ORDERED: IOPAMIDOL (ISOVUE-300) 100 ML BTL ONE (10:33)
[2017-12-01] MEDS ORDERED: LIDOCAINE 1% 300 MG/30 ML SDV ONE (10:34)
--- NOTE | 2017-12-01 10:39 | PDPROPOC ---
Sedation Plan of Care Sedation Plan of Care: vital signs stable, mental status noted, patient educated of risks, benefits, alternatives, patient can tolerate sedation ASA Classification: ASA 3 Planned drugs: fentanyl, midazolam Mallampati Score: Class 3 Mallampati Reference Image: Patient passed 3-3-2 rule?: Yes
[2017-12-01] MEDS ORDERED: ACETAMINOPHEN 325 MG TAB PO PRN (10:42)
[2017-12-01] MEDS ORDERED: ONDANSETRON 4 MG/2 ML VIAL IVP PRN (10:42)
--- NOTE | 2017-12-01 10:42 | PDRADPN ---
Radiology Procedure Note Date of Procedure: 12/01/17 Radiologist: Marko Oh Anesthesia: IV Sedation Pre-op Diagnosis: Prostate ca, bilateral hydronephrosis, CKD Post-op Diagnosis: Same Indication: Bilateral hydronephrosis, CKD Procedure: Bilateral nephrostomy placement Finding(s): See dictated report Inf/Abcess present in the surg proc area at time of surgery?: Yes Depth: Organ Space (Renal) Complications: No immediate Drains: Nephrostomy (Bilateral 10-Fr nephrostomies) Specimen(s): 10 cc cloudy yellow urine sent from each side
[2017-12-01 13:06] VITALS: TEMP 97.5
[2017-12-01 13:40] VITALS: BP 130/82; PULSE 70; RESP 18; O2SAT 95
== END 2017-12-01 13:25 | disposition home or self-care (01) ==
LOC: FIMAGING 07:25
PROVIDERS: ATTEND Physician Assistant Medical
PROC: BT1D1ZZ Fluoroscopy of Right Kidney, Ureter and Bladder using Low Osmolar Contrast (ICD-10-PCS; principal; 2017-12-01 10:37)
PROC: 0T9330Z Drainage of Right Kidney Pelvis with Drainage Device, Percutaneous Approach (ICD-10-PCS; principal; 2017-12-01 10:37)
PROC: 0T9430Z Drainage of Left Kidney Pelvis with Drainage Device, Percutaneous Approach (ICD-10-PCS; principal; 2017-12-01 10:37)
DX: N13.30 Unspecified hydronephrosis (principal); C61 Malignant neoplasm of prostate; N18.9 Chronic kidney disease, unspecified
CPT/HCPCS: 50432; 99152; 99153; C1729; C1769; J0696; J2250; J3010; Q9967

== ENCOUNTER → 2017-12-08 | Day surgery (SDC) | payer BC | END | disposition home or self-care (01) | LOC: FIMAGING 08:57 | PROVIDERS: ATTEND Obstetrics & Gynecology | DX: Z43.6 Encounter for attention to other artificial openings of urinary tract (principal); N13.30 Unspecified hydronephrosis; Z85.46 Personal history of malignant neoplasm of prostate ==

== ENCOUNTER 2018-01-11 08:29 | Inpatient (IN) | payer BC ==
[2018-01-11] MEDS ORDERED: ALTEPLASE 2 MG VIAL IVP PRN (09:07)
[2018-01-11] MEDS ORDERED: GLUCAGON HCL 1 MG VIAL IVP PRN (09:07)
[2018-01-11] MEDS ORDERED: PROTAMINE SULFATE 50 MG/5 ML VIAL IVP PRN (09:07)
[2018-01-11] MEDS ORDERED: MIDAZOLAM 2 MG/2 ML VIAL IVP PRN (09:07)
[2018-01-11] MEDS ORDERED: MEPERIDINE 25 MG/ML SYR IVP PRN (09:07)
[2018-01-11] MEDS ORDERED: fentaNYL 100 MCG/2 ML INJ IVP PRN (09:07)
[2018-01-11] MEDS ORDERED: HEPARIN 10,000 UNIT/10 ML MDV (1,000 UNIT/ML) IVP PRN (09:07)
[2018-01-11] MEDS ORDERED: FLUMAZENIL 0.5 MG/5 ML MDV IVP PRN (09:07)
[2018-01-11] MEDS ORDERED: cefTRIAXone 1 GM in STERILE WATER INJ 10 ML IV ONE (09:07)
[2018-01-11] MEDS ORDERED: NALOXONE HCL 0.4 MG/ML INJ IVP PRN (09:07)
[2018-01-11] MEDS ORDERED: NS 1,000 ML IV SCH (09:15)
--- NOTE | 2018-01-11 10:04 | PDPROPOC ---
Sedation Plan of Care Sedation Plan of Care: vital signs stable, mental status noted, patient educated of risks, benefits, alternatives, patient can tolerate sedation ASA Classification: ASA 3 Planned drugs: fentanyl, midazolam Mallampati Score: Class 2 Mallampati Reference Image: Patient passed 3-3-2 rule?: Yes
--- NOTE | 2018-01-11 10:06 | PDGENHP ---
History & Physical Chief Complaint: BILATERAL NEPHROSTOMIES History of Present Illness: LT TUBE FELL OUT. RT ONE NEEDS CHANGE. Pertinent Past, Social, Family History: PROSTATE CA. BLOCKED URETERS. POST NEPHROSTOMY PLACEMENT FOR BILATERAL HYDRONEPHROSIS. Relevant Physical Exam: AWAKE, ALERT. MODREATE URINE OUTPUT FROM RT. Cardiorespiratory Assessment: RRR. CTA.
[2018-01-11] MEDS ORDERED: fentaNYL 100 MCG/2 ML INJ ONE (10:50)
[2018-01-11] MEDS ORDERED: MIDAZOLAM 2 MG/2 ML VIAL ONE (10:51)
[2018-01-11] MEDS ORDERED: IOPAMIDOL (ISOVUE-300) 100 ML BTL ONE (11:23)
[2018-01-11] MEDS ORDERED: LIDOCAINE 1% 300 MG/30 ML SDV ONE ×2 (11:23→12:52)
[2018-01-11] MEDS ORDERED: ONDANSETRON 4 MG/2 ML VIAL IVP PRN (11:32)
[2018-01-11] MEDS ORDERED: ACETAMINOPHEN 325 MG TAB PO PRN (11:32)
[2018-01-11] MEDS ORDERED: MEPERIDINE 25 MG/ML SYR ONE ×2 (13:21→13:22)
--- NOTE | 2018-01-11 13:44 | SOAPPROG ---
SOAP Progress Note Assessment/Plan: Assessment: Post LT perc neph placement with dirty looking urine (sent off for Cx). Previous LT perc neph fell out two days ago. Post RT tube change. Plan: 1. Shakes and low grade fever, likely bacteremia. Blood and urine Cx pending. Labs pending. 2. Patient currently stable. Will admit under hospitalist care for continued monitoring. 01/11/18 13:42 Subjective: No specific complaints from patient. Objective: Vital Signs Temp Pulse Resp BP Pulse Ox 35.9 C L 93 16 107/70 100 01/11/18 10:59 01/11/18 10:59 01/11/18 12:37 01/11/18 11:29 01/11/18 11:30 Shaking slightly. Awake and alert, coherent in speech. No pain. VS note with tachycardia up to 144. ICD10 Worksheet Patient Problems: Problems Problem Status Onset Acute renal failure Acute Dehydration Acute Renal insufficiency Acute
[2018-01-11] MEDS ORDERED: 1/2 NS 1,000 ML IV SCH (13:45)
[2018-01-11 14:10] LABS: PLATELET COUNT 327 10^3/uL (150-400)
[2018-01-11] MEDS ORDERED: PROMETHAZINE HCL 25 MG/ML INJ IVP PRN (14:33)
[2018-01-11] MEDS ORDERED: STERILE WATER IV SCH ×2 (14:45)
[2018-01-11] MEDS ORDERED: MEROPENEM IV SCH ×2 (14:45)
--- NOTE | 2018-01-11 15:21 | GHP ---
[f rep st] HISTORY AND PHYSICAL DATE OF ADMISSION: 01/11/2018 CHIEF COMPLAINT: Fever, tachycardia, post nephrostomy tube change. HPI: The patient is an 87-year-old man with a history significant for prostate cancer and renal fail ure. He has chronic nephrostomy tubes and is in today to see Dr. Deng for tube changing. Apparently, one of his tubes had fallen out, and the other one needed to be changed. While she was in the midst of changing the tube, there was some foul smelling urine noted, and he started having rigors and spi ked a fever. He is being admitted for further observation and treatment. He has chronic renal failu re with a baseline creatinine generally in the 2.3 range. It has not been checked recently. His mos t recent admission was in October, at which time he was noted to be in acute on chronic renal failur e. He does have a history of bilateral hydronephrosis, and had been seen by Dr. Mccarthy. He ended up having nephrostomy tubes placed a month and a half ago, and had tolerated them well until they starte d leaking. He currently is unable to provide much history. He is slightly confused, and can tell me he is on , but he denies any current pain. PAST MEDICAL HISTORY: Significant for hypertension, renal failure, spinal stenosis, and the prostate cancer status post bilateral nephrostomy tubes placed. He was nauseated postop and threw up everyth ing he had eaten postprocedure, and is currently rigorous. REVIEW OF SYSTEMS: Unobtainable due to the patient's mental status. PAST MEDICAL HISTORY: 1. Hypertension. 2. Renal failure. Baseline creatinine around 2.4. 3. Prediabetes. 4. Prostate cancer. 5. Bilateral nephrostomy tubes. 6. Peripheral neuropathy. 7. Previous UTIs. His microbiology for them includes Staph aureus sensitive and Pseudomonas. FAMILY HISTORY: Parents are . SOCIAL HISTORY: several years ago. He currently lives alone in [facility]. He is wh eelchair bound due to his peripheral neuropathy and fear of falling. He does have a wheelchair on ev stefany floor of house, and goes up and down the stairs without assistance until he gets to the next floo r, where he has a wheelchair waiting for him. He has 2 sons in town. Both of them help him out and take him to appointments, etc. CURRENT MEDICATIONS: See med rec form. ALLERGIES: No known drug allergies. PHYSICAL EXAM: VITAL SIGNS: Heart rate is in the 130s, temperature 39, he is 96% on supplemental ox ygen, blood pressure currently is 150/80. GENERAL: He is a very elderly, weak making looking 87-yea r-old man in some moderate distress. He has some slurred speech and some confusion. HEENT: Otherwi se, atraumatic. Pupils are small, but reactive. Mucous membranes are dry. His speech is slurred. NECK: Supple. HEART: Tachycardic. LUNGS: Diminished, but clear. ABDOMEN: He has some mild tend erness bilaterally. Right nephrostomy tube change. EXTREMITIES: No significant edema. Pulses inta ct. SKIN: No lesions. MOOD: Confused. ASSESSMENT AND PLAN: 1. An 87-year-old ill man with a history of prostate cancer, bilateral hydronephrosis and bilateral nephrostomy tubes placed, presents with fevers, rigors, tachycardia post nephrostomy tube change. Hi s right tube was able to be changed and had some dirty looking urine. The left tube fell out, and th at was not changed at this time. I suspect he does have some bacteremia, possible early sepsis. The plan will be to watch him closely overnight for observation, and put on IV antibiotics, IV fluids, a nd watch him for signs of imminent septic shock. 2. Prostate cancer. 3. History of hypertension. 4. Recurrent urinary tract infections, usually Pseudomonas or sensitive Staphylococcus aureus. 5. History of peripheral neuropathy that has essentially debilitated him to a wheelchair-bound statu s. 6. Deep vein thrombosis prophylaxis. We will place him on subcutaneous heparin given his renal fail ure. 7. Chronic renal failure. Baseline creatinine 2. We will check a creatinine at this time. /[id number]/MODL
[2018-01-11] MEDS: NS 1,000 ML IV SCH ×2 (15:48→23:59)
[2018-01-11] MEDS: MEROPENEM 1 GM in STERILE WATER INJ 20 ML IV SCH (16:37)
--- NOTE | 2018-01-11 19:07 | GCON ---
[f rep st] CONSULTATION RESEARCH PSYCHOLOGIST CONSULTATION REASON FOR ADMISSION: Recurrent urinary tract infection, rigors, and possible SIRS. HISTORY OF PRESENT ILLNESS: The patient is an 87-year-old, white male with an extensive past medical history including peripheral neuropathy, prostate cancer, chronic renal insufficiency, hypertension, bilateral nephrostomy tubes. He was seen today in Interventional Radiology for nephrostomy tube jorje nges. There was some foul-smelling urine noted during the change. He began having rigors, and subse quently spiked a fever. He was also somewhat confused and tachycardic. He was subsequently admitted to the Intensive Care Unit. In discussion with the patient currently, he states he feels markedly i mproved. His mental status appears to have improved as well. He denies any cough or production of s putum. He denies any breathlessness. There is no chest pain, pleuritic-type chest pain, or angina e quivalent. He was having some nausea and vomiting, but none recently. PAST MEDICAL HISTORY: Again, significant for hypertension, renal failure, prostate cancer, periphera l neuropathy, and frequent urinary tract infections. FAMILY HISTORY: Noncontributory. ALLERGIES: None known to medications. SOCIAL HISTORY: No history of tobacco abuse. No history of alcohol use. His had several years ago. He resides at [facility]. He is wheelchair bound. REVIEW OF SYSTEMS: A 10-point review of systems was performed, is negative with the exception of wha t is found in the HPI. PHYSICAL EXAM: VITAL SIGNS: Blood pressure is 107/70, this has improved to 140/78, pulse 91, respir ations are 20, temperature is 35.9, oxygen saturation 100% on 2 L. GENERAL: He is a thin, somewhat cachectic, elderly white male who is resting comfortably, in no acute distress. HEENT: Eyes are PER RLA, EOMI. He has bilateral arcus senilis present. Throat shows no erythema or tonsillar hypertroph y. NECK: Supple. There is no cervical adenopathy. HEART: Mildly tachycardic, but regular rate an d rhythm. LUNGS: Diminished breath sounds, but no wheeze. ABDOMEN: Soft, nontender. Bowel sounds are present in all 4 quadrants. EXTREMITIES: No clubbing, cyanosis, or edema. LABORATORIES: White count 6.2, hemoglobin 11, hematocrit 35, platelet count is 327, sodium 140, pota ssium 3.9, chloride 106, CO2 23, BUN 33, creatinine is 1.8, glucose 85. lactic acid is 1. 9. IMPRESSION: 1. Fever and rigors, etiology of which is unclear, though urinary tract infection is most likely. 2. Possible systemic inflammatory response syndrome. Does not appear to be septic. 3. History of renal failure. His baseline creatinine is 2.4. He is currently at 1.7. 4. History of prostate cancer. 5. Severe peripheral neuropathy. 6. History for bilateral nephrostomy tubes. 7. History of previous urinary tract infections. RECOMMENDATIONS: 1. I agree with close cardiovascular monitoring. 2. Aggressive IV hydration. 3. Watch for signs of possible sepsis and septic shock. 4. DVT and PE prophylaxis. 5. Stress ulcer prophylaxis. 6. Continue the majority of his home medications. /[id number]/MODL
[2018-01-12] MEDS: MEROPENEM 1 GM in STERILE WATER INJ 20 ML IV SCH (02:42)
[2018-01-12 07:39] VITALS: RESP 13; TEMP 97.5
[2018-01-12] MEDS: NS 1,000 ML IV SCH (07:39)
[2018-01-12 07:52] LABS: PLATELET COUNT 285 10^3/uL (150-400)
[2018-01-12 08:57] VITALS: BP 110/57; PULSE 78; O2SAT 98
--- NOTE | 2018-01-12 08:58 | PDMN ---
Medical Necessity Medical necessity: M160 sepsis and other febrile illness A-3 days- fever, tachycardia, rigors, S/P bilateral nephrostomy tube change, suspected bacteremia - IV fluids, abx, further monitoring > 2 midnights
[2018-01-12] MEDS ORDERED: CHOLECALCIFEROL VIT D3 1,000 UNITS TAB PO SCH (09:00)
[2018-01-12] MEDS ORDERED: GABAPENTIN 100 MG CAP PO SCH (09:00)
[2018-01-12] MEDS ORDERED: PSYLLIUM METAMUCIL 1 PKT PO SCH (09:00)
--- NOTE | 2018-01-12 09:24 | PDINTPN ---
Medical And Scientific Illustrator Progress Note Assessment/Plan: Assessment/plan: * SIRS-with rigors and fever and tachycardia post nephrostomy tube change * Status post nephrostomy tube change * Prostate cancer * Hypertension * Recurrent urinary tract infections * Severe peripheral neuropathy * Chronic renal insufficiency * Disposition-likely discharge home today Subjective: Feels markedly improved and wishes to go home. Objective: Vital Signs Temp Pulse Resp BP Pulse Ox 36.4 C 78 13 110/57 L 98 01/12/18 07:38 01/12/18 07:41 01/12/18 07:38 01/12/18 07:41 01/12/18 07:41 Microbiology 01/11/18 11:15 Gram Stain - Final Other - Aspirate Laboratory Results 01/12/18 07:35 01/12/18 07:35 01/11/18 01/12/18 01/13/18 05:59 05:59 05:59 Intake Total 2515 171 Output Total 1030 Balance 1485 171 Laboratory Results 01/12/18 07:35 01/12/18 07:35 01/12/18 07:35 Calcium 8.6 mg/dL mg/dL (8.5 - 10.4) Total Bilirubin 0.4 mg/dL mg/dL (0.1 - 1.4) AST 16 IU/L L IU/L (17 - 59) ALT 26 IU/L IU/L (21 - 72) Alkaline Phosphatase 51 IU/L IU/L (38 - 126) Total Protein 5.9 g/dL L g/dL (6.3 - 8.2) Albumin 2.9 g/dL L g/dL (3.5 - 5.0) - Time Spent With Patient Time Spent With Patient: 25 min of time spent with patient, over 1/2 involved with coordination of care or counseling. Case discussed with nurse Physical Exam - Physical Exam General Appearance: WD/WN, alert, no apparent distress EENT: PERRL/EOMI, normal ENT inspection Neck: non-tender, full range of motion, supple, normal inspection Respiratory: chest non-tender, lungs clear, normal breath sounds Cardiac/Chest: normal peripheral pulses, regular rate, rhythm, systolic murmur Abdomen: normal bowel sounds, non-tender, soft Male Genitalia: deferred Rectal: deferred Skin: normal color, warm/dry Extremities: non-tender, normal inspection Neuro/Psych: no motor/sensory deficits, alert, normal mood/affect, oriented x 3 ICD10 Worksheet Patient Problems: Problems Problem Status Onset Acute renal failure Acute Dehydration Acute Renal insufficiency Acute
--- NOTE | 2018-01-12 09:42 | ASMTCMCOM ---
CM Note CM Note Notes: Patient admitted after his L nephrostomy tube fell out. He has a hx of prostate cancer and bilateral nephrostomy tubes. Patient is feeling markedly better after having his tube changed. He was seen by PT who cleared him for home. He has a long hx of refusing homecare; he lives alone and has a caregiver visit 2x day. He is also supported by two sons in the area. Case Management available if patient decides he wants skilled homecare. Date Signed: 01/12/2018 09:42 AM Electronically Signed By:Orly León RN
[2018-01-12] MEDS ORDERED: DOXYCYCLINE HYCLATE 100 MG CAP/TAB PO SCH (11:45)
--- NOTE | 2018-01-12 11:46 | PDDCSUM ---
Discharge Summary Discharge Summary: This is a 87 yo male with hx of bilateral nephrostomy tubes who had scheduled left nephrostomy tube replacement and right tube changes yesterday and was noted to have fever and rigors. He was subsequently admitted into the ICU. He has a hx of polyresistant UTI with last UCX on 12/31 c/w Pseudomonas and Citrobacter. He was started on Meropenem yesterday and feels much better. He was previously on 2 days of Levaquin. 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 He is requesting discharge due to financial reasons and does not want to wait for sensitivities. Unfortunately other than Levaquin we do not have oral options to treat the pseudomonas. Given his insistence to discharge today, I have discussed the case with ID who has not formally consulted. We have decided on treating with Levaquin 750mg every other day (renally dosed) and Doxycycline 100mg PO BID. He will be treated for pyelo for a total of 10 days of treatment given the complexity. There is a chance he may be bacteremic but he is requesting discharge and the likelihood is that the new abx regimen will be effective DDX: #Pyelonephritis #Bilateral nephrostomy tubes #?SIRS, ?Bacteremia: BCx: NGTD #Chronic Renal Insufficiency Exam: NAD AAOX3 MMM RRR CTA B S/NT/ND NO LE EDEMA MEDS: SEE MED REC.ABX PER ABOVE TOTAL TIME SPENT ON D/C IS 45 MINUTES CASE D/W STONEWORKING SANDER AND TEAM DURING TEAM ROUNDS.
--- NOTE | 2018-01-12 11:57 | PDIAF ---
- Diagnosis Diagnosis: pyelonephritis Code Status: Full Code - Medication Management Discharge Medications: Medications to Continue on Transfer Gabapentin [Neurontin 100 MG (*)] 200 mg PO BID 12/11/16 [Last Taken 01/10/18] traZODone [traZODONE 50MG (*)] 50 mg PO HS 12/11/16 [Last Taken 11/30/17] Cholecalciferol Vit D3 [Vitamin D3 (*)] 1,000 units PO DAILY 01/11/18 [Last Taken 01/10/18] Melatonin/Pyridoxine HCl (B6) [Melatonin 10 mg Tablet] 1 each PO HS 01/11/18 [ Last Taken 01/10/18] Psyllium Husk (with Sugar) [Metamucil Packet] 1 each PO BID 01/11/18 [Last Taken 01/10/18] Doxycycline Hyclate [Vibramycin 100 MG (*)] 100 mg PO BID #20 capsule 01/12/18 [ Last Taken Unknown] levOFLOXACIN [levAQUIN (*)] 750 mg PO EVERY OTHER DAY #0 01/12/18 [Last Taken ] Discharge Medications: Refer to the Discharge Home Medication list for PRN reason. - Orders Services needed: Home Care, Physical Therapy, Occupational Therapy Home Care Face to Face: I certify that this patient was under my care and that I had the required [id number] encounter meeting the encounter requirements on the discharge day. My findings support the fact that the patient is homebound as defined in Home Care Face to Face Continued: CMS Chapter 7 Medicare Benefits Manual 30.1.1 , The condition of the patient is such that there exists a normal inability to leave home and consequently, leaving home would require a considerable and taxing effort. Isolation Type: None Diet Recommendation: no restrictions on diet Diet Texture: Regular Texture Diet - Follow Up Care Current Providers and Referrals: Aleksandar Champion MD [Primary Care Provider] - Destinee Deng MD [Medical Doctor] -
[2018-01-12] MEDS ORDERED: Melatonin/Pyridoxine Hcl (B6) [Melatonin 10 Mg Tablet] 1 EACH PO SCH (21:00)
[2018-01-12] MEDS ORDERED: traZODone 50 MG TAB PO SCH (21:00)
== END 2018-01-12 13:10 | disposition home health service (06) | DRG 690 ==
LOC: FIMAGING 08:29 → F1N 13:34 → F2N 15:15
PROVIDERS: ADMIT Radiology Diagnostic Radiology; ATTEND Family Medicine
DX: N12 Tubulo-interstitial nephritis, not specified as acute or chronic (principal); C61 Malignant neoplasm of prostate; I12.9 Hypertensive chronic kidney disease with stage 1 through stage 4 chronic kidney disease, or unspecified chronic kidney disease; N18.9 Chronic kidney disease, unspecified; R73.03 Prediabetes; G62.9 Polyneuropathy, unspecified; Z99.3 Dependence on wheelchair; Z87.440 Personal history of urinary (tract) infections; Z93.6 Other artificial openings of urinary tract status
CPT/HCPCS: 97161-GP; 97165-GO; C1729; C1769; G8978-GP-CK; G8979-GP-CJ; G8987-GO-CI; G8988-GO-CI; G8989-GO-CI; J0696; J1644; J2175; J2185; J2250; J2405; J2550; J3010; Q9967

== ENCOUNTER → 2018-02-15 | Day surgery (SDC) | payer BC | END | disposition home or self-care (01) | LOC: FIMAGING 11:16 | PROVIDERS: ATTEND Physician Assistant Medical | DX: T83.022A Displacement of nephrostomy catheter, initial encounter (principal); Z53.8 Procedure and treatment not carried out for other reasons ==

== ENCOUNTER → 2018-02-16 | Day surgery (SDC) | payer BC ==
[~2018-02-16] MED LIST changes: +IOPAMIDOL (ISOVUE 370) 100 ML BTL IV ONE; -IOPAMIDOL (ISOVUE-300) 100 ML BTL IV ONE; +LIDOCAINE 1% 300 MG/30 ML SDV ONE
== END | disposition home or self-care (01) ==
LOC: FIMAGING 10:48
PROVIDERS: ATTEND Physician Assistant Medical
DX: T83.022A Displacement of nephrostomy catheter, initial encounter (principal); Y65.8 Other specified misadventures during surgical and medical care
CPT/HCPCS: Q9967

== ENCOUNTER 2018-02-17 11:35 | Day surgery (SDC) | payer BC ==
[2018-02-17] MEDS ORDERED: MIDAZOLAM 2 MG/2 ML VIAL IVP PRN (11:51)
[2018-02-17] MEDS ORDERED: ALTEPLASE 2 MG VIAL IVP PRN (11:51)
[2018-02-17] MEDS ORDERED: NALOXONE HCL 0.4 MG/ML INJ IVP PRN (11:51)
[2018-02-17] MEDS ORDERED: fentaNYL 100 MCG/2 ML INJ IVP PRN (11:51)
[2018-02-17] MEDS ORDERED: GLUCAGON HCL 1 MG VIAL IVP PRN (11:51)
[2018-02-17] MEDS ORDERED: FLUMAZENIL 0.5 MG/5 ML MDV IVP PRN (11:51)
[2018-02-17] MEDS ORDERED: MEPERIDINE 25 MG/ML SYR IVP PRN (11:51)
[2018-02-17] MEDS ORDERED: PROTAMINE SULFATE 50 MG/5 ML VIAL IVP PRN (11:51)
[2018-02-17] MEDS ORDERED: HEPARIN 10,000 UNIT/10 ML MDV (1,000 UNIT/ML) IVP PRN (11:51)
[2018-02-17] MEDS ORDERED: NS 1,000 ML IV SCH (12:00)
[2018-02-17 12:36] LABS: PLATELET COUNT 348 10^3/uL (150-400)
[2018-02-17 12:45] LABS: INR 1.04 (0.83-1.16); PROTIME(PATIENT) 13.8 SEC (12.0-15.0)
--- NOTE | 2018-02-17 13:27 | PDPROPOC ---
Sedation Plan of Care Sedation Plan of Care: vital signs stable, mental status noted, patient educated of risks, benefits, alternatives, patient can tolerate sedation ASA Classification: ASA 2 Planned drugs: fentanyl, midazolam Mallampati Score: Class 3 Mallampati Reference Image:
--- NOTE | 2018-02-17 13:27 | PDGENHP ---
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 Presents 2 days post inadvertent drain removal. Relevant Physical Exam: VS wnl, NAD, AOx3, no acute pain Cardiorespiratory Assessment: RRR, nl wob
[2018-02-17] MEDS ORDERED: ACETAMINOPHEN 325 MG TAB PO PRN (14:24)
[2018-02-17] MEDS ORDERED: ONDANSETRON 4 MG/2 ML VIAL IVP PRN (14:24)
--- NOTE | 2018-02-17 14:31 | PDRADPN ---
Radiology Procedure Note Date of Procedure: 02/17/18 Radiologist: Feliciano Henriquez Anesthesia: IV Sedation Pre-op Diagnosis: bilateral ureter obstruction Post-op Diagnosis: same Indication: both PCNs pulled out. restore diversion Procedure: bilateral PCN Finding(s): unable to salvage left tract. New stick to inf calyx. dilated system. 8F PCN placed. cloudy urine output. right tract salvaged. dilated system. 8F PCN placed. clear urine. Inf/Abcess present in the surg proc area at time of surgery?: No EBL: Minimal Complications: none
[2018-02-17] MEDS ORDERED: LIDOCAINE 1% 300 MG/30 ML SDV ONE (14:45)
[2018-02-17] MEDS ORDERED: IOPAMIDOL (ISOVUE-300) 100 ML BTL ONE (14:45)
[2018-02-17 15:51] VITALS: BP 147/86
== END 2018-02-17 16:10 | disposition home health service (06) ==
LOC: FIMAGING 11:35
PROVIDERS: ATTEND Specialist
PROC: 0T9330Z Drainage of Right Kidney Pelvis with Drainage Device, Percutaneous Approach (ICD-10-PCS; principal; 2018-02-17 14:45)
PROC: BT42ZZZ Ultrasonography of Left Kidney (ICD-10-PCS; principal; 2018-02-17 14:45)
PROC: 0T9430Z Drainage of Left Kidney Pelvis with Drainage Device, Percutaneous Approach (ICD-10-PCS; principal; 2018-02-17 14:45)
PROC: BT111ZZ Fluoroscopy of Right Kidney using Low Osmolar Contrast (ICD-10-PCS; principal; 2018-02-17 14:45)
DX: N13.8 Other obstructive and reflux uropathy (principal); T83.022D Displacement of nephrostomy catheter, subsequent encounter; Y65.8 Other specified misadventures during surgical and medical care; Z85.46 Personal history of malignant neoplasm of prostate
CPT/HCPCS: 50432; 50435; 99152; 99153; C1729; C1769; J2250; J2310; J3010; Q9967

== ENCOUNTER 2018-03-24 13:33 | Day surgery (SDC) | payer BC ==
[2018-03-24 14:34] LABS: INR 1.1 (0.83-1.16); PROTIME(PATIENT) 14.4 SEC (12.0-15.0)
--- NOTE | 2018-03-24 14:35 | PDGENHP ---
History & Physical Chief Complaint: LT PERC NEPH FELL OUT; RIGHT DUE FOR CHANGE History of Present Illness: BILATERAL PERC NEPH PLACED 3 MONTHS AGO FOR PROSTATE CA. Pertinent Past, Social, Family History: PROSTATE CA; BACK FUSION; CATARACT REMOVAL. Relevant Physical Exam: LT TUBE OUT. SITE GOOD. Cardiorespiratory Assessment: RRR, CTA
--- NOTE | 2018-03-24 14:36 | PDPROPOC ---
Sedation Plan of Care Sedation Plan of Care: vital signs stable, mental status noted, patient educated of risks, benefits, alternatives, patient can tolerate sedation ASA Classification: ASA 3 Planned drugs: fentanyl, midazolam Mallampati Score: Class 2 Mallampati Reference Image: Patient passed 3-3-2 rule?: No
[2018-03-24] MEDS ORDERED: MEPERIDINE 25 MG/ML SYR IVP PRN (14:41)
[2018-03-24] MEDS ORDERED: ALTEPLASE 2 MG VIAL IVP PRN (14:41)
[2018-03-24] MEDS ORDERED: PROTAMINE SULFATE 50 MG/5 ML VIAL IVP PRN (14:41)
[2018-03-24] MEDS ORDERED: MIDAZOLAM 2 MG/2 ML VIAL IVP PRN (14:41)
[2018-03-24] MEDS ORDERED: HEPARIN 10,000 UNIT/10 ML MDV (1,000 UNIT/ML) IVP PRN (14:41)
[2018-03-24] MEDS ORDERED: FLUMAZENIL 0.5 MG/5 ML MDV IVP PRN (14:41)
[2018-03-24] MEDS ORDERED: fentaNYL 100 MCG/2 ML INJ IVP PRN (14:41)
[2018-03-24] MEDS ORDERED: NALOXONE HCL 0.4 MG/ML INJ IVP PRN (14:41)
[2018-03-24] MEDS ORDERED: GLUCAGON HCL 1 MG VIAL IVP PRN (14:41)
[2018-03-24] MEDS ORDERED: NS 1,000 ML IV SCH (14:45)
[2018-03-24 15:02] LABS: PLATELET COUNT 480 10^3/uL (150-400)
[2018-03-24] MEDS ORDERED: LIDOCAINE 1% 300 MG/30 ML SDV ONE (16:03)
[2018-03-24] MEDS ORDERED: IOPAMIDOL (ISOVUE-300) 100 ML BTL ONE (16:03)
[2018-03-24] MEDS ORDERED: ACETAMINOPHEN 325 MG TAB PO PRN (17:03)
[2018-03-24] MEDS ORDERED: ONDANSETRON 4 MG/2 ML VIAL IVP PRN (17:03)
--- NOTE | 2018-03-24 17:06 | PDRADPN ---
Radiology Procedure Note Date of Procedure: 03/24/18 Radiologist: Destinee Deng Anesthesia: IV Sedation Pre-op Diagnosis: prostate ca Post-op Diagnosis: same Indication: bilateral obstructed kidneys. perc nephs fell out. Procedure: bilateral perc neph placement Finding(s): moderate hydronephrosis. perc nephs placed. Inf/Abcess present in the surg proc area at time of surgery?: No Complications: none
[2018-03-24 18:01] VITALS: BP 139/94
== END 2018-03-24 18:40 | disposition home or self-care (01) ==
LOC: FIMAGING 13:33
PROVIDERS: ATTEND Specialist
PROC: 0T9830Z Drainage of Bilateral Ureters with Drainage Device, Percutaneous Approach (ICD-10-PCS; principal; 2018-03-24 17:25)
PROC: 0TW530Z Revision of Drainage Device in Kidney, Percutaneous Approach (ICD-10-PCS; principal; 2018-03-24 17:25)
DX: Z43.6 Encounter for attention to other artificial openings of urinary tract (principal); N13.30 Unspecified hydronephrosis
CPT/HCPCS: 50435; 99152; C1729; C1769; J0696; J1644; J2250; J2310; J3010; Q9967

== ENCOUNTER 2018-04-12 09:45 | Emergency (ER) | payer BC ==
[2018-04-13 06:36] VITALS: BP 143/73
[2018-04-14 08:20] LABS: INR 1.2 (0.83-1.16); PROTIME(PATIENT) 15.4 SEC (12.0-15.0)
[2018-04-14 09:36] LABS: PLATELET COUNT 495 10^3/uL (150-400)
--- NOTE | 2018-04-14 16:45 | EDPHY ---
H & P Stated Complaint: R/O UTI Time Seen by Provider: 04/12/18 09:50 - Personal History Current Tetanus/Diphtheria Vaccine: Unsure Current Tetanus Diphtheria and Acellular Pertussis (TDAP): Unsure - Medical/Surgical History Hx Asthma: No Hx Chronic Respiratory Disease: No Hx Diabetes: No Hx Cardiac Disease: Yes Hx Renal Disease: No Hx Cirrhosis: No Hx Alcoholism: No Hx HIV/AIDS: No Hx Splenectomy or Spleen Trauma: No Other PMH: htn, peripheral neuropathy,uti/?kidney failure/prostate cancer - Social History Smoking Status: Former smoker Constitutional: Initial Vital Signs Temperature (C) 36.9 C 04/12/18 12:25 Heart Rate 88 04/12/18 12:25 Respiratory Rate 18 04/12/18 12:25 Blood Pressure 143/73 H 04/12/18 12:25 O2 Sat (%) 94 04/12/18 12:25 O2 Delivery Mode Room Air Allergies/Adverse Reactions: No Known Allergies Allergy (Verified 01/10/18 10:38) Home Medications: Medication Instructions Recorded Gabapentin [Neurontin 100 MG (*)] 200 mg PO BID 12/11/16 traZODone [traZODONE 50MG (*)] 50 mg PO HS 12/11/16 Cholecalciferol Vit D3 [Vitamin D3 1,000 units PO DAILY 01/11/18 (*)] Melatonin/Pyridoxine HCl (B6) 1 each PO HS 01/11/18 [Melatonin 10 mg Tablet] Psyllium Husk (with Sugar) 1 each PO BID 01/11/18 [Metamucil Packet] Doxycycline Hyclate [Vibramycin 100 mg PO BID #20 capsule 01/12/18 100 MG (*)] levOFLOXACIN [levAQUIN (*)] 750 mg PO EVERY OTHER DAY #0 01/12/18 Medical Decision Making ED Course/Re-evaluation: This note was created during prolonged hospital-wide EHR downtime and may be incomplete or contain inaccuracies to due circumstance limitations. CHIEF COMPLAINT: Tachycardia, concern for sepsis HISTORY OF PRESENT ILLNESS: The patient is an 87 y/o male arriving from his PCP' s office with concern for sepsis. He presented to Dr. Champion's office with tachycardia and had a UA indicating possible UTI. The patient has bilateral nephrostomies in place for the last 4 months. He had an episode of confusion yesterday per APPEALS MANAGER, but this has resolved today. The patient thinks he is dehydrated, but otherwise denies any symptoms including back pain, fever, nausea , vomiting, chills, or abdominal pain. REVIEW OF SYSTEMS: A 10 point review of systems was performed and is negative with the exception of the elements mentioned in the history of present illness. PHYSICAL EXAM: HR 110, BP 138/72, O2 Sat 97%, RR. Temp 37.2C General Appearance: Alert, well hydrated, appropriate, and non-toxic appearing. Head: Atraumatic without scalp tenderness or obvious injury Eyes: Pupils equal, round, reactive to light and accommodation, EOMI, no trauma , no injection. Nose: Atraumatic, no rhinorrhea, clear. Throat: There is no erythema or exudates, no lesions, normal tonsils, mucus membranes moist. Neck: Supple, Respiratory: No retractions, no distress, no wheezes, and no accessory muscle use. Lungs are clear to auscultation bilaterally. Cardiovascular: Regular rate and rhythm, no murmurs, rubs, or gallops. Good capillary refill all extremities. Gastrointestinal: Abdomen is soft, non-tender, non-distended, no masses, no rebound, no guarding, no peritoneal signs. Musculoskeletal: Normal active ROM of all extremities, atraumatic. Bilateral nephrostomy tubes in place. Neurological: Alert, appropriate, and interactive. Nonfocal. Skin: No rashes, good turgor, no nodules on palpation. PAST MEDICAL HISTORY: Bilateral renal obstructions PAST SURGICAL HISTORY: Bilateral nephrostomies SOCIAL HISTORY: Retired, formerly worked in [employer]. Lives in [place]. PCP: Dr. Champion Unable to access old records due to EHR downtime. DIFFERENTIAL DIAGNOSIS: The differential diagnosis for the patient's symptoms included but was not limited to dehydration, chronic urinary tract colonization , pneumonia, urinary tract infection, viral syndrome, meningitis, and sepsis. MEDICAL DECISION MAKING: This is an 87 y/o male with a 4-month history of bilateral nephrostomies who presents from his PCP's office with tachycardia, positive outpatient UA, and concern for sepsis. On assessment, patient is largely asymptomatic and believes he is dehydrated. He is completely alert and oriented and does not appear clinically septic. He is afebrile and normotensive. Plan for IV, sepsis labs, UA , fluids. IV NS 1L ordered. ISTAT: Na 140, K 3.7, Cl 102, Glu 101, BUN 32, Hct 39, Hgb 13.3, Creatinine 2.1 ISTAT: lactate 3.48. 1110: Reassessement. Patient is currently sleeping. His HR is now 88, BP 130/ 70. He remains afebrile. We are not declaring sepsis at this time. Presentation consistent with dehydration and chronic urine colonization. Additional 1L IV NS ordered. 1205: Patient is feeling significantly improved. He will be discharged home with dehydration care and follow up instructions. Return precautions discussed. He is comfortable with this plan. This note was created during prolonged hospital-wide EHR downtime and may be incomplete or contain inaccuracies to due circumstance limitations. - Data Points Laboratory Results: Laboratory Results 04/12/18 10:10 04/12/18 10:10 04/12/18 04/12/18 04/12/18 10:10 10:10 10:10 WBC 10.63 10^3/uL H 10^3/uL (3.80-9.50) RBC 4.06 10^6/uL L 10^6/uL (4.40-6.38) Hgb 11.8 g/dL L g/dL (13.7-17.5) Hct 37.0 % L % (40.0-51.0) MCV 91.1 fL fL (81.5-99.8) MCH 29.1 pg pg (27.9-34.1) MCHC 31.9 g/dL L g/dL (32.4-36.7) RDW 15.2 % % (11.5-15.2) Plt Count 495 10^3/uL H 10^3/uL (150-400) MPV 9.1 fL fL (8.7-11.7) Neut % (Auto) 81.2 % H % (39.3-74.2) Lymph % (Auto) 9.6 % L % (15.0-45.0) [place] % (Auto) 5.6 % % (4.5-13.0) Eos % (Auto) 2.4 % % (0.6-7.6) Baso % (Auto) 0.7 % % (0.3-1.7) Nucleat RBC Rel Count 0.0 % % (0.0-0.2) Absolute Neuts (auto) 8.65 10^3/uL H 10^3/uL (1.70-6.50) Absolute Lymphs (auto) 1.02 10^3/uL 10^3/uL (1.00-3.00) Absolute Monos (auto) 0.59 10^3/uL 10^3/uL (0.30-0.80) Absolute Eos (auto) 0.25 10^3/uL 10^3/uL (0.03-0.40) Absolute Basos (auto) 0.07 10^3/uL 10^3/uL (0.02-0.10) Absolute Nucleated RBC 0.00 10^3/uL 10^3/uL (0-0.01) Immature Gran % 0.5 % % (0.0-1.1) Immature Gran # 0.05 10^3/uL 10^3/uL (0.00-0.10) PT INR Sodium 142 mEq/L mEq/L (135-145) Potassium 4.2 mEq/L mEq/L (3.3-5.0) Chloride 105 mEq/L mEq/L (97-110) Carbon Dioxide 21 mEq/l L mEq/l (22-31) Anion Gap 16 mEq/L mEq/L (8-16) BUN 32 mg/dL H mg/dL (7-23) Creatinine 1.9 mg/dL H mg/dL (0.7-1.3) Estimated GFR 34 Glucose 94 mg/dL mg/dL (70-100) Calcium 8.5 mg/dL mg/dL (8.5-10.4) Total Bilirubin 0.4 mg/dL mg/dL (0.1-1.4) Conjugated Bilirubin 0.3 mg/dL mg/dL (0.0-0.5) Unconjugated Bilirubin 0.1 mg/dL mg/dL (0.0-1.1) AST 12 IU/L L IU/L (17-59) ALT 17 IU/L L IU/L (21-72) Alkaline Phosphatase 69 IU/L IU/L (38-126) Total Protein 7.3 g/dL g/dL (6.3-8.2) Albumin 3.5 g/dL g/dL (3.5-5.0) Urine Color YELLOW Urine Appearance TURBID Urine pH 6.0 (5.0-7.5) Ur Specific [place] 1.011 (1.002-1.030) Urine Protein 1+ H (NEGATIVE) Urine Ketones NEGATIVE (NEGATIVE) Urine Blood 2+ H (NEGATIVE) Urine Nitrate POSITIVE H (NEGATIVE) Urine Bilirubin NEGATIVE (NEGATIVE) Urine Urobilinogen 0.1 EU EU (0.2-1.0) Ur Leukocyte Esterase 3+ H (NEGATIVE) Urine RBC 15-25 /hpf H /hpf (0-3) Urine WBC 50-182 /hpf H /hpf (0-3) Ur Epithelial Cells NONE SEEN /lpf /lpf (NONE-1+) Urine Glucose NEGATIVE (NEGATIVE) 04/12/18 10:10 WBC RBC Hgb Hct MCV MCH MCHC RDW Plt Count MPV Neut % (Auto) Lymph % (Auto) [place] % (Auto) Eos % (Auto) Baso % (Auto) Nucleat RBC Rel Count Absolute Neuts (auto) Absolute Lymphs (auto) Absolute Monos (auto) Absolute Eos (auto) Absolute Basos (auto) Absolute Nucleated RBC Immature Gran % Immature Gran # PT 15.4 SEC H SEC (12.0-15.0) INR 1.20 H (0.83-1.16) Sodium Potassium Chloride Carbon Dioxide Anion Gap BUN Creatinine Estimated GFR Glucose Calcium Total Bilirubin Conjugated Bilirubin Unconjugated Bilirubin AST ALT Alkaline Phosphatase Total Protein Albumin Urine Color Urine Appearance Urine pH Ur Specific [place] Urine Protein Urine Ketones Urine Blood Urine Nitrate Urine Bilirubin Urine Urobilinogen Ur Leukocyte Esterase Urine RBC Urine WBC Ur Epithelial Cells Urine Glucose Microbiology Results: MICROBIOLOGY 04/12/18 11:19 Blood Blood Culture - Preliminary 04/12/18 11:19 Blood Blood Culture - Preliminary Point of Care Test Results: Chemistry 04/12/18 10:12 POC Sodium 140 mEq/L mEq/L (135-145) POC Potassium 3.7 mEq/L mEq/L (3.3-5.0) POC Chloride 102 mEq/L mEq/L (97-110) POC BUN 32 mg/dL H mg/dL (7-23) POC Creatinine 2.1 mg/dL H mg/dL (0.7-1.3) POC Glucose 101 mg/dL H mg/dL (70-100) Blood Gas/Lactic Acid-Venous 04/12/18 10:22 POC Lactic Acid [place] 3.5 mmol/L H mmol/L (0.7-2.1) ISTAT H&H 04/12/18 10:12 POC Hgb 13.3 gm/dL L gm/dL (13.7-17.5) POC Hct 39 % L % (40-51) Departure - Departure Disposition: Home, Routine, Self-Care Clinical Impression: Dehydration Condition: Good Referrals: Aleksandar Champion MD [Primary Care Provider] - As per Instructions Report Scribed for: Renaldo Mulligan Report Scribed by: Irina Resendiz
== END 2018-04-12 12:25 | disposition home or self-care (01) ==
DX: E86.0 Dehydration (principal); I10 Essential (primary) hypertension; Z85.46 Personal history of malignant neoplasm of prostate; Z87.891 Personal history of nicotine dependence
CPT/HCPCS: 82435-PO; 82565-PO; 82947-PO; 83605-PO; 84132-PO; 84295-PO; 84520-PO; 85014-PO

== ENCOUNTER 2018-05-02 14:00 | Day surgery (SDC) | payer BC ==
[2018-05-02] MEDS ORDERED: GLUCAGON HCL 1 MG VIAL IVP PRN (14:20)
[2018-05-02] MEDS ORDERED: MEPERIDINE 25 MG/ML SYR IVP PRN (14:20)
[2018-05-02] MEDS ORDERED: fentaNYL 100 MCG/2 ML INJ IVP PRN (14:20)
[2018-05-02] MEDS ORDERED: HEPARIN 10,000 UNIT/10 ML MDV (1,000 UNIT/ML) IVP PRN (14:20)
[2018-05-02] MEDS ORDERED: PROTAMINE SULFATE 50 MG/5 ML VIAL IVP PRN (14:20)
[2018-05-02] MEDS ORDERED: MIDAZOLAM 2 MG/2 ML VIAL IVP PRN (14:20)
[2018-05-02] MEDS ORDERED: NALOXONE HCL 0.4 MG/ML INJ IVP PRN (14:20)
[2018-05-02] MEDS ORDERED: FLUMAZENIL 0.5 MG/5 ML MDV IVP PRN (14:20)
[2018-05-02] MEDS ORDERED: ALTEPLASE 2 MG VIAL IVP PRN (14:20)
[2018-05-02] MEDS ORDERED: NS 1,000 ML IV SCH (14:30)
[2018-05-02] MEDS ORDERED: CEFAZOLIN 1 GM/DEXTROSE/50 ML BAG IV ONE (14:38)
[2018-05-02 14:54] LABS: INR 1.13 (0.83-1.16); PROTIME(PATIENT) 14.7 SEC (12.0-15.0)
--- NOTE | 2018-05-02 15:16 | PDRADPRE ---
Radiology History & Physical Indication for procedure: other (Hydronephrosis) Home medications: Gabapentin [Neurontin 100 MG (*)] 300 mg PO BID 12/11/16 [Last Taken 05/01/18] traZODone [traZODONE 50MG (*)] 50 mg PO HS 12/11/16 [Last Taken 05/01/18] Cholecalciferol Vit D3 [Vitamin D3 (*)] 1,000 units PO DAILY 01/11/18 [Last Taken 05/02/18] Melatonin/Pyridoxine HCl (B6) [Melatonin 10 mg Tablet] 1 each PO HS 01/11/18 [ Last Taken 05/01/18] Psyllium Husk (with Sugar) [Metamucil Packet] 1 each PO BID 01/11/18 [Last Taken 05/01/18] Allergies/Adverse Reactions: No Known Allergies Allergy (Verified 01/10/18 10:38) Mental status: A&Ox3 Mallampati Score: Class 2 (ASA 3)
[2018-05-02] MEDS ORDERED: ONDANSETRON 4 MG/2 ML VIAL IVP PRN (15:55)
[2018-05-02] MEDS ORDERED: ACETAMINOPHEN 325 MG TAB PO PRN (15:55)
--- NOTE | 2018-05-02 15:57 | PDRADPN ---
Radiology Procedure Note Date of Procedure: 05/02/18 Radiologist: Marva Michael Anesthesia: IV Sedation Pre-op Diagnosis: nephrostomy tube fallen out Post-op Diagnosis: Same Procedure: bilateral nephrostomy tube exchange Inf/Abcess present in the surg proc area at time of surgery?: No
[2018-05-02] MEDS ORDERED: IOPAMIDOL (ISOVUE-300) 100 ML BTL ONE (16:06)
[2018-05-02 18:40] VITALS: BP 127/72
== END 2018-05-02 18:15 | disposition home or self-care (01) ==
LOC: FIMAGING 14:00
PROVIDERS: ATTEND Radiology Diagnostic Radiology
PROC: 0T25X0Z Change Drainage Device in Kidney, External Approach (ICD-10-PCS; principal; 2018-05-02 16:10)
DX: N13.39 Other hydronephrosis (principal)
CPT/HCPCS: 50435; 75984; C1729; C1769; J0690; J0696; J1644; J2250; J2310; J3010; Q9967